=== PATIENT | male | born 1940 | race Caucasian/White ===

== ENCOUNTER 2017-01-21 20:36 | Inpatient (IN) | payer MEDICAID ==
[2017-01-21 20:36] VITALS: BMI 27.3
[2017-01-21 21:14] LABS: BASO # 0.1 K/uL (0.0-0.2); BASO % 0.9 % (0.0-2.0); EOS # 0.2 K/uL (0.0-0.7); EOS % 3.3 % (0.0-4.0); HEMATOCRIT 42.5 % (35.0-51.0); LYMPH % 15.4 % (20.0-40.0); MEAN CELL VOLUME 94.3 fL (80.0-94.0); MEAN CORPUSCULAR HEMOGLOBIN 31.2 pg (27.0-31.0); MEAN PLATELET VOLUME 8.3 fL (7.2-11.7); MONO # 0.5 K/uL (0.0-0.8); MONO % 8.1 % (0.0-10.0); WHITE BLOOD COUNT 6.3 K/uL (4.8-10.8)
[2017-01-21] MEDS ORDERED: Aspirin 325 mg EC Tablets PO STA (21:18)
--- NOTE | 2017-01-21 21:18 | C.PDOC ---
History Of Present Illness 76 y/o male pmhx COPD presents to the ED with complaints of chest pain intermittently for the past 2 days with associated SOB. Denies fever, chills, vomiting, dizziness or any other complaints. Time Seen by Provider: 01/21/17 21:18 Chief Complaint (Nursing): Chest Pain History Per: Patient History/Exam Limitations: no limitations Onset/Duration Of Symptoms: Days, Intermittent Episodes Current Symptoms Are (Timing): Still Present Severity: Moderate Quality: "Pain" Associated Symptoms: denies: Nausea Modifying Factors: None Alleviating Factors: None Recent travel outside of the [place]: No Past Medical History Reviewed: Historical Data, Nursing Documentation, Vital Signs Vital Signs: Last Vital Signs Temp 98 F 01/21/17 20:38 Pulse 60 01/21/17 20:38 Resp 15 01/21/17 20:38 BP 159/72 H 01/21/17 20:38 Pulse Ox 92 L 01/21/17 21:40 - Medical History PMH: Atrial Fibrillation, Benign Prostatic Hyperplasia, COPD, Depression (Major depressive), HTN, Hyperlipidemia, Sleep Apnea Family History: States: Unknown Family Hx - Social History Hx Alcohol Use: No Hx Substance Use: No - Immunization History Hx Tetanus Toxoid Vaccination: No Hx Influenza Vaccination: Yes (04/05/2016) Hx Pneumococcal Vaccination: Yes (04/05/2016) Review Of Systems Constitutional: Negative for: Fever, Chills Cardiovascular: Positive for: Chest Pain Respiratory: Positive for: Shortness of Breath Gastrointestinal: Negative for: Vomiting Genitourinary: Negative for: Dysuria Musculoskeletal: Negative for: Back Pain Skin: Positive for: Rash (legs) Neurological: Negative for: Dizziness Psych: Negative for: Anxiety Physical Exam - Physical Exam Appears: Non-toxic, No Acute Distress Skin: Warm, Dry, No Rash, Other (poor vascular skin changes) Head: Normacephalic Eye(s): bilateral: Normal Inspection Oral Mucosa: Moist Neck: Supple Chest: Symmetrical, Other (pacemaker to left chest wall) Cardiovascular: Rhythm Irregular, No Murmur Respiratory: No Accessory Muscle Use, Rales (at bases), No Rhonchi, No Wheezing Gastrointestinal/Abdominal: Soft, No Tenderness, Distention, No Guarding, No Rebound, Other (obese, tympanic to percussion) Back: No CVA Tenderness Extremity: Pedal Edema (trace pedal edema bilterally), No Calf Tenderness, Capillary Refill (<2 seconds) Extremity: Bilateral: Atraumatic Pulses: Left Dorsalis Pedis: Normal, Right Dorsalis Pedis: Normal Neurological/Psych: Oriented x3, Normal Speech, Normal Cognition Gait: Steady ED Course And Treatment - Laboratory Results Result Diagrams: 01/21/17 21:02 01/21/17 21:02 ECG: Interpreted By Me, Viewed By Me O2 Sat by Pulse Oximetry: 92 (room air) Pulse Ox Interpretation: Abnormal - Radiology CXR: Interpreted by Me, Viewed By Me CXR Interpretation: Yes: Other (unchnaged from 2013, pacer in left chest wall). No: Infiltrates, Fracture, Pnemothorax Disposition Discussed With DrAlia: Sarita Soriano Comment: acceptd the pt on his service and took over the care at 10:25 PM Doctor Will See Patient In The: Hospital Counseled Patient/Family Regarding: Studies Performed, Diagnosis - Disposition Disposition: HOSPITALIZED Disposition Time: 21:18 Condition: FAIR - POA Present On Arrival: Poor Glycemic Control - Clinical Impression Clinical Impression: Chest pain, COPD (chronic obstructive pulmonary disease), Dyspnea - Scribe Statement The provider has reviewed the documentation as recorded by the Hue Newton Provider Attestation: All medical record entries made by the Hue were at my direction and personally dictated by me. I have reviewed the chart and agree that the record accurately reflects my personal performance of the history, physical exam, medical decision making, and the department course for this patient. I have also personally directed, reviewed, and agree with the discharge instructions and disposition. Decision To Admit - Pt Status Changed To: Hospital Disposition Of: Inpatient - Admit Certification Admit to Inpatient:: After my assessment, the patient will require hospitalization for at least two midnights. This is because of the severity of symptoms shown, intensity of services needed, and/or the medical risk in this patient being treated as an outpatient. - InPatient: Physician Admission Certification: I certify that this patient requires 2 or more midnights of care for the following reason:: After my assessment, the patient will require hospitalization for at least two midnights. This is because of the severity of symptoms shown, intensity of services needed, and/or the medical risk in this patient being treated as an outpatient. - . Bed Request Type: Telemetry Admitting Physician: Sarita Soriano Patient Diagnosis: Chest pain, COPD (chronic obstructive pulmonary disease), Dyspnea
[2017-01-21 21:22] LABS: CHLORIDE 100 mmol/L (98-107); POTASSIUM 3.3 mmol/L (3.6-5.2); SODIUM 141 mmol/L (132-148)
[2017-01-21 21:24] LABS: ALB/GLOB RATIO 1.5 (1.0-2.1); AST/SGOT 20 U/L (17-59); BILIRUBIN,TOTAL 0.4 mg/dL (0.2-1.3); CARBON DIOXIDE 28 mmol/L (22-30); GFR AFRICAN-AMERICAN > 60
[2017-01-21 21:25] LABS: ALKALINE PHOSPHATASE 53 U/L (38-126); ALT/SGPT 29 U/L (21-72); BLOOD UREA NITROGEN 20 mg/dL (9-20); CALCIUM 8.3 mg/dl (8.6-10.4); GLUCOSE,RANDOM 137 mg/dL (75-110)
[2017-01-21] MEDS ORDERED: Aspirin 325 mg EC Tablets PO ONE (21:25)
[2017-01-21 21:37] LABS: INR 1.1
[2017-01-21] MEDS ORDERED: Albuterol-Ipratrop 3 mg / 0.5 (3 ml) UD INH PRN (22:28)
[2017-01-21] MEDS ORDERED: Albuterol-Ipratrop 3 mg / 0.5 (3 ml) UD IH PRN (22:43)
[2017-01-21] MEDS ORDERED: Potassium Chloride 20 mEq ER Tab PO STA (22:48)
--- NOTE | 2017-01-21 22:48 | CP.PCM.HP ---
History of Present Illness - History of Present Illness History of Present Illness: 76 years old male pt with pmh of htn, copd, CAD sp CABG, HLD, afib, ppm presented with c/o intermittent chest pain x 2 days. pain started in back and upper shoulder and moved to chest. no c/o palpitation, lightheadedness no limb swelling, dizziness no fever, nausea, vomiting Present on Admission - Present on Admission Any Indicators Present on Admission: No Past Patient History - Past Social History Smoking Status: Former Smoker - CARDIAC Hx Atrial Fibrillation: Yes Hx Hypertension: Yes - PULMONARY Hx Chronic Obstructive Pulmonary Disease (COPD): Yes Hx Sleep Apnea: Yes - HEENT Hx Glaucoma: Yes - RENAL Hx Renal Failure: Yes - ENDOCRINE/METABOLIC Hx Diabetes Mellitus Type 1: Yes - GASTROINTESTINAL Hx Gastroesophageal Reflux: Yes - GENITOURINARY/GYNECOLOGICAL Other/Comment: Obstructive and reflux uropathy - PSYCHIATRIC Hx Depression: Yes (Major depressive) Hx Substance Use: No - SURGICAL HISTORY Hx Surgeries: No - ANESTHESIA Hx Anesthesia: No Meds Allergies/Adverse Reactions: Allergies Allergy/AdvReac Type Severity Reaction Status Date / Time No Known Allergies Allergy Verified 01/21/17 20:47 Results - Vital Signs Recent Vital Signs: Last Vital Signs Temp 98 F 01/21/17 20:38 Pulse 60 01/21/17 20:38 Resp 15 01/21/17 20:38 BP 159/72 H 01/21/17 20:38 Pulse Ox 92 L 01/21/17 22:26 - Labs Result Diagrams: 01/21/17 21:02 01/21/17 21:02 Assessment & Plan (1) Aortic stenosis Status: Acute (2) CAD (coronary artery disease) Status: Acute (3) COPD (chronic obstructive pulmonary disease) Status: Acute (4) Chest pain Status: Acute (5) Dyspnea Status: Acute (6) HTN (hypertension) Status: Acute - Assessment and Plan (Free Text) Plan: meds and labs reviewed carmelita marte proscar cardio consult labs next am
[2017-01-21] MEDS: Albuterol-Ipratrop 3 mg / 0.5 (3 ml) UD IH SCH (23:32)
--- NOTE | 2017-01-22 09:12 | RAD ---
PROCEDURE: CHEST RADIOGRAPH, 1 VIEW HISTORY: Chest pain COMPARISON: None available. FINDINGS: LUNGS: The lungs are well inflated. There is mild pulmonary venous congestion. PLEURA: No pneumothorax or pleural fluid seen. CARDIOVASCULAR: There is moderate cardiomegaly. Status post CABG. Atherosclerotic aortic arch calcifications are present. . OSSEOUS STRUCTURES: No significant abnormalities. VISUALIZED UPPER ABDOMEN: Normal. OTHER FINDINGS: None. IMPRESSION: Moderate cardiomegaly and mild pulmonary venous congestion.
[2017-01-22] MEDS: (Novolin R) Insulin Human Regular 100 units/ml vial SC SCH ×2 (10:00→17:03)
[2017-01-22] MEDS: Fluticasone-Salmeterol 250-50mcg Diskus IH SCH ×2 (10:44→19:13)
--- NOTE | 2017-01-22 10:48 | CP.PCM.PN ---
Subjective - Date & Time of Evaluation Date of Evaluation: 01/22/17 Time of Evaluation: 12:20 - Subjective Subjective: clinically same Objective - Vital Signs/Intake and Output Vital Signs (last 24 hours): Temp Pulse Resp BP Pulse Ox 97.3 F L 60 18 156/73 H 99 01/22/17 07:20 01/22/17 07:20 01/22/17 07:20 01/22/17 07:20 01/22/17 07:20 - Medications Medications: Current Medications Acetaminophen (Tylenol 325mg Tab) 650 mg PO Q4 PRN PRN Reason: Fever >100.4 F Acetazolamide (Diamox 250 Mg Tab) 250 mg PO BID [facility] Albuterol/Ipratropium (Duoneb 3 Mg/0.5 Mg (3 Ml) Ud) 3 ml INH RQ2 PRN PRN Reason: Shortness of Breath Stop: 01/22/17 22:29 Albuterol/Ipratropium (Duoneb 3 Mg/0.5 Mg (3 Ml) Ud) 3 ml IH RQ6 PRN PRN Reason: Wheezing Aspirin (Aspirin Chewable) 81 mg PO DAILY [facility] Benzonatate (Tessalon Perles) 100 mg PO Q8 [facility] Bumetanide (Bumex) 0.5 mg PO DAILY [facility] Citalopram Hydrobromide (Celexa) 20 mg PO DAILY [facility] Finasteride (Proscar) 5 mg PO DAILY [facility] Glipizide (Glucotrol Xl) 2.5 mg PO DAILY [facility] Home Med (Brimonidine 0.15% [Alphagan P 0.15% Opht]) 1 drop OP BID [facility] Home Med (Dorzolamide Hcl/Timolol Maleat [Dorzolamide-Timolol Eye Drops]) 10 ml OP BID [facility] Insulin Human Regular (Novolin R) 0 unit SC BID [facility] PRN Reason: Protocol Lactulose (Enulose) 10 gm PO HS PRN PRN Reason: Constipation Latanoprost (Xalatan Opht) 0 ml OD HS [facility] Losartan Potassium (Cozaar) 100 mg PO DAILY [facility] Pilocarpine HCl (Isopto Carpine 1% Opht Soln) 1 drop OU TID [facility] Pneumococcal Polyvalent Vaccine (Pneumovax 23 Vaccine) 0.5 ml IM .ONCE ONE Stop: 01/24/17 14:01 Rosuvastatin Calcium (Crestor) 5 mg PO HS [facility] Fluticasone/Salmeterol (Advair Diskus 250/50) 1 puff IH RQ12 [facility] Last Admin: 01/22/17 10:44 Dose: Not Given Tamsulosin HCl (Flomax) 0.4 mg PO DAILY [facility] - Labs Labs: PT 12.4 SECONDS (9.7-12.2) H 01/21/17 21:24 INR 1.1 01/21/17 21:24 APTT 31 SECONDS (21-34) 01/21/17 21:24 - Constitutional Appears: Well - Head Exam Head Exam: ATRAUMATIC, NORMAL INSPECTION, NORMOCEPHALIC - Eye Exam Eye Exam: EOMI, Normal appearance, PERRL Pupil Exam: NORMAL ACCOMODATION, PERRL - ENT Exam ENT Exam: Mucous Membranes Moist, Normal Exam - Neck Exam Neck Exam: Full ROM, Normal Inspection. absent: Lymphadenopathy - Respiratory Exam Respiratory Exam: Decreased Breath Sounds - Cardiovascular Exam Cardiovascular Exam: REGULAR RHYTHM, +S1, +S2 - GI/Abdominal Exam GI & Abdominal Exam: Soft, Diminished Bowel Sounds - Rectal Exam Rectal Exam: Deferred Assessment and Plan (1) Aortic stenosis Status: Acute (2) CAD (coronary artery disease) Status: Acute (3) COPD (chronic obstructive pulmonary disease) Status: Acute (4) Chest pain Status: Acute (5) Dyspnea Status: Acute (6) HTN (hypertension) Status: Acute - Assessment and Plan (Free Text) Plan: carmelita as ordered pain improved pt comfortable oob carmelita aspirin bp meds dvt px cardio on board fup with labs pt/ot
[2017-01-22] MEDS: PILOCARPINE 1% OU SCH ×3 (11:00→17:43)
[2017-01-22] MEDS: GlipiZIDE 2.5 mg SR Tab PO SCH (11:15)
[2017-01-22] MEDS: Dorzolamide 2% Opht Sol 10ml OU SCH ×2 (13:37→17:45)
[2017-01-22] MEDS: Brimonidine 0.2% Opth Sol (5ml) OU SCH ×2 (14:00→17:40)
[2017-01-22] MEDS: Enoxaparin 40 mg Syringe SC SCH (15:10)
[2017-01-22] MEDS ORDERED: Latanoprost 2.5 ml Opht Soln OD SCH (22:00)
[2017-01-23 08:42] VITALS: PULSE 60; RESP 20
[2017-01-23] MEDS: Enoxaparin 40 mg Syringe SC SCH (09:35)
[2017-01-23] MEDS: Brimonidine 0.2% Opth Sol (5ml) OU SCH (09:35)
[2017-01-23] MEDS: GlipiZIDE 2.5 mg SR Tab PO SCH (09:35)
[2017-01-23] MEDS: PILOCARPINE 1% OU SCH ×2 (09:36→13:32)
[2017-01-23] MEDS: Dorzolamide 2% Opht Sol 10ml OU SCH (09:36)
[2017-01-23] MEDS: Fluticasone-Salmeterol 250-50mcg Diskus IH SCH (09:52)
--- NOTE | 2017-01-23 13:16 | CP.PCM.PN ---
Subjective - Date & Time of Evaluation Date of Evaluation: 01/23/17 Time of Evaluation: 10:40 - Subjective Subjective: clinically same Objective - Vital Signs/Intake and Output Vital Signs (last 24 hours): Temp Pulse Resp BP Pulse Ox 97.6 F 60 20 154/79 H 98 01/23/17 08:42 01/23/17 12:00 01/23/17 08:42 01/23/17 08:42 01/23/17 08:42 Intake and Output: 01/23/17 01/23/17 06:59 18:59 Intake Total 120 Balance 120 - Medications Medications: Current Medications Acetaminophen (Tylenol 325mg Tab) 650 mg PO Q4 PRN PRN Reason: Fever >100.4 F Acetazolamide (Diamox 250 Mg Tab) 250 mg PO BID [facility] Last Admin: 01/23/17 09:35 Dose: 250 mg Albuterol/Ipratropium (Duoneb 3 Mg/0.5 Mg (3 Ml) Ud) 3 ml IH RQ6 PRN PRN Reason: Wheezing Aspirin (Aspirin Chewable) 81 mg PO DAILY [facility] Last Admin: 01/23/17 09:35 Dose: 81 mg Benzonatate (Tessalon Perles) 100 mg PO Q8 [facility] Last Admin: 01/23/17 06:42 Dose: 100 mg Brimonidine Tartrate (Alphagan 0.2% Opht) 0 ml OU BID [facility] Last Admin: 01/23/17 09:35 Dose: 1 drop Bumetanide (Bumex) 0.5 mg PO DAILY [facility] Last Admin: 01/23/17 09:34 Dose: 0.5 mg Citalopram Hydrobromide (Celexa) 20 mg PO DAILY [facility] Last Admin: 01/23/17 09:35 Dose: 20 mg Dorzolamide HCl (Trusopt) 0 ml OU BID [facility] Last Admin: 01/23/17 09:36 Dose: 1 drop Enoxaparin Sodium (Lovenox) 40 mg SC DAILY [facility] Last Admin: 01/23/17 09:35 Dose: 40 mg Finasteride (Proscar) 5 mg PO DAILY [facility] Last Admin: 01/23/17 09:35 Dose: 5 mg Glipizide (Glucotrol Xl) 2.5 mg PO DAILY [facility] Last Admin: 01/23/17 09:35 Dose: 2.5 mg Insulin Human Regular (Novolin R) 0 unit SC BID [facility] PRN Reason: Protocol Last Admin: 01/22/17 17:03 Dose: Not Given Lactulose (Enulose) 10 gm PO HS PRN PRN Reason: Constipation Latanoprost (Xalatan Opht) 0 ml OD HS [facility] Last Admin: 01/22/17 21:56 Dose: 2.5 ml Losartan Potassium (Cozaar) 100 mg PO DAILY [facility] Last Admin: 01/23/17 09:35 Dose: 100 mg Pilocarpine HCl (Isopto Carpine 1% Opht Soln) 1 drop OU TID [facility] Last Admin: 01/23/17 09:36 Dose: 1 drop Pneumococcal Polyvalent Vaccine (Pneumovax 23 Vaccine) 0.5 ml IM .ONCE ONE Stop: 01/24/17 14:01 Rosuvastatin Calcium (Crestor) 5 mg PO HS [facility] Last Admin: 01/22/17 21:55 Dose: 5 mg Fluticasone/Salmeterol (Advair Diskus 250/50) 1 puff IH RQ12 [facility] Last Admin: 01/23/17 09:52 Dose: 1 puff Tamsulosin HCl (Flomax) 0.4 mg PO DAILY [facility] Last Admin: 01/23/17 09:35 Dose: 0.4 mg Timolol Maleate (Timoptic 0.5% Ophth Soln) 1 drop OU BID [facility] Last Admin: 01/23/17 09:36 Dose: 1 drop - Labs Labs: PT 12.4 SECONDS (9.7-12.2) H 01/21/17 21:24 INR 1.1 01/21/17 21:24 APTT 31 SECONDS (21-34) 01/21/17 21:24 - Constitutional Appears: Well - Head Exam Head Exam: ATRAUMATIC, NORMAL INSPECTION, NORMOCEPHALIC - Eye Exam Eye Exam: EOMI, Normal appearance, PERRL Pupil Exam: NORMAL ACCOMODATION, PERRL - ENT Exam ENT Exam: Mucous Membranes Moist, Normal Exam - Neck Exam Neck Exam: Full ROM, Normal Inspection. absent: Lymphadenopathy - Respiratory Exam Respiratory Exam: Decreased Breath Sounds - Cardiovascular Exam Cardiovascular Exam: REGULAR RHYTHM, +S1, +S2 - GI/Abdominal Exam GI & Abdominal Exam: Soft, Diminished Bowel Sounds - Rectal Exam Rectal Exam: Deferred Assessment and Plan (1) Aortic stenosis Status: Acute (2) CAD (coronary artery disease) Status: Acute (3) COPD (chronic obstructive pulmonary disease) Status: Acute (4) Chest pain Status: Acute (5) Dyspnea Status: Acute (6) HTN (hypertension) Status: Acute - Assessment and Plan (Free Text) Plan: pt feeling better pain relieved no acute events overnight dc back to [facility] carmelita meds as advised heart helathy diet discussed with family
[2017-01-23 16:08] VITALS: O2SAT 97
--- NOTE | 2017-01-23 17:38 | CP.PCM.PN ---
Subjective - Date & Time of Evaluation Date of Evaluation: 01/23/17 Time of Evaluation: 11:00 - Subjective Subjective: Awake, alert, responsive, NAD. Objective - Vital Signs/Intake and Output Vital Signs (last 24 hours): Temp Pulse Resp BP Pulse Ox 97.6 F 60 20 154/79 H 97 01/23/17 08:42 01/23/17 16:01 01/23/17 08:42 01/23/17 08:42 01/23/17 16:01 Intake and Output: 01/23/17 01/23/17 06:59 18:59 Intake Total 120 400 Balance 120 400 - Medications Medications: Current Medications Acetaminophen (Tylenol 325mg Tab) 650 mg PO Q4 PRN PRN Reason: Fever >100.4 F Acetazolamide (Diamox 250 Mg Tab) 250 mg PO BID [facility] Last Admin: 01/23/17 09:35 Dose: 250 mg Albuterol/Ipratropium (Duoneb 3 Mg/0.5 Mg (3 Ml) Ud) 3 ml IH RQ6 PRN PRN Reason: Wheezing Aspirin (Aspirin Chewable) 81 mg PO DAILY [facility] Last Admin: 01/23/17 09:35 Dose: 81 mg Benzonatate (Tessalon Perles) 100 mg PO Q8 [facility] Last Admin: 01/23/17 13:32 Dose: 100 mg Brimonidine Tartrate (Alphagan 0.2% Opht) 0 ml OU BID [facility] Last Admin: 01/23/17 09:35 Dose: 1 drop Bumetanide (Bumex) 0.5 mg PO DAILY [facility] Last Admin: 01/23/17 09:34 Dose: 0.5 mg Citalopram Hydrobromide (Celexa) 20 mg PO DAILY [facility] Last Admin: 01/23/17 09:35 Dose: 20 mg Dorzolamide HCl (Trusopt) 0 ml OU BID [facility] Last Admin: 01/23/17 09:36 Dose: 1 drop Enoxaparin Sodium (Lovenox) 40 mg SC DAILY [facility] Last Admin: 01/23/17 09:35 Dose: 40 mg Finasteride (Proscar) 5 mg PO DAILY [facility] Last Admin: 01/23/17 09:35 Dose: 5 mg Glipizide (Glucotrol Xl) 2.5 mg PO DAILY [facility] Last Admin: 01/23/17 09:35 Dose: 2.5 mg Insulin Human Regular (Novolin R) 0 unit SC BID [facility] PRN Reason: Protocol Last Admin: 01/22/17 17:03 Dose: Not Given Lactulose (Enulose) 10 gm PO HS PRN PRN Reason: Constipation Latanoprost (Xalatan Opht) 0 ml OD HS [facility] Last Admin: 01/22/17 21:56 Dose: 2.5 ml Losartan Potassium (Cozaar) 100 mg PO DAILY [facility] Last Admin: 01/23/17 09:35 Dose: 100 mg Pilocarpine HCl (Isopto Carpine 1% Opht Soln) 1 drop OU TID [facility] Last Admin: 01/23/17 13:32 Dose: 1 drop Pneumococcal Polyvalent Vaccine (Pneumovax 23 Vaccine) 0.5 ml IM .ONCE ONE Stop: 01/24/17 14:01 Rosuvastatin Calcium (Crestor) 5 mg PO HS [facility] Last Admin: 01/22/17 21:55 Dose: 5 mg Fluticasone/Salmeterol (Advair Diskus 250/50) 1 puff IH RQ12 [facility] Last Admin: 01/23/17 09:52 Dose: 1 puff Tamsulosin HCl (Flomax) 0.4 mg PO DAILY [facility] Last Admin: 01/23/17 09:35 Dose: 0.4 mg Timolol Maleate (Timoptic 0.5% Ophth Soln) 1 drop OU BID [facility] Last Admin: 01/23/17 09:36 Dose: 1 drop - Labs Labs: PT 12.4 SECONDS (9.7-12.2) H 01/21/17 21:24 INR 1.1 01/21/17 21:24 APTT 31 SECONDS (21-34) 01/21/17 21:24 Assessment and Plan - Assessment and Plan (Free Text) Assessment: Patient admitted from the [facility] with chest pain, seen and examined. Out of bed, no complaints of pain, alert, awake. D/W DR Richie Soriano, plan to discharge back to [facility] after seen by DR Javier.
[2017-01-23 18:09] VITALS: BP 121/74; TEMP 98.1
--- NOTE | 2017-01-23 18:11 | CP.PCM.CON ---
History of Present Illness - History of Present Illness History of Present Illness: I was asked to see patient by Dr. Richie Soriano. Patient is a 76 year old male with PMH HTN, CAD s/p CABG, hypercholesterolemia, PPM who presents with chest pain. Patient describes pain which began in his back and upper shoulder blade and radiated to his chest. The patient denies dyspnea. He denies syncope. Review of Systems - Constitutional Constitutional: absent: As Per HPI, Anorexia, Chills, Daytime Sleepiness, Excessive Sweating, Fatigue, Fever, Frequent Falls, Headache, Increased Appetite , Lethargy, Malaise, Night Sweats, Snoring, Sleep Apnea, Weight Gain, Weight Loss, Weakness, Other - EENT Eyes: absent: As Per HPI, Blind Spots, Blurred Vision, Change in Vision, Decreased Night Vision, Diplopia, Discharge, Dry Eye, Exophthalmos, Floaters, Irritation, Itchy Eyes, Loss of Peripheral Vision, Pain, Photophobia, Requires Corrective Lenses, Sees Flashes, Spots in Vision, Tunnel Vision, Other Visual Disturbances, Loss of Vision, Other Ears: absent: As Per HPI, Decreased Hearing, Ear Discharge, Ear Pain, Tinnitus, Abnormal Hearing, Disequilibrium, Dizziness, Other Nose/Mouth/Throat: absent: As Per HPI, Epistaxis, Nasal Congestion, Nasal Discharge, Nasal Obstruction, Nasal Trauma, Nose Pain, Post Nasal Drip, Sinus Pain, Sinus Pressure, Bleeding Gums, Change in Voice, Dental Pain, Dry Mouth, Dysphagia, Halitosis, Hoarsness, Lip Swelling, Mouth Lesions, Mouth Pain, Odynophagia, Sore Throat, Throat Swelling, Tongue Swelling, Facial Pain, Neck Pain, Neck Mass, Other - Cardiovascular Cardiovascular: Chest Pain at Rest - Respiratory Respiratory: absent: As Per HPI, Cough, Dyspnea, Hemoptysis, Dyspnea on Exertion , Wheezing, Snoring, Stridor, Pain on Inspiration, Chest Congestion, Excessive Mucous Production, Change in Mucous Color, Pain with Coughing, Other - Gastrointestinal Gastrointestinal: absent: As Per HPI, Abdominal Pain, Belching, Bloating, Change in Bowel Habits, Change in Stool Character, Coffee Ground Emesis, Constipation, Cramping, Diarrhea, Dyspepsia, Dysphagia, Early Satiety, Excessive Flatus, Fecal Incontinence, Heartburn, Hematemesis, Hematochezia, Loose Stools, Melena, Nausea, Odynophagia, Temesmus, Vomiting, Other - Genitourinary Genitourinary: absent: As Per HPI, Change in Urinary Stream, Difficulty Urinating, Dysuria, Flank Pain, Hematuria, Pyuria, Nocturia, Urinary Incontinence, Urinary Frequency, Urinary Hesitance, Urinary Urgency, Voiding Freq/Small Amts, Freq UTI, Hx Renal/Bladder Calculi, Hx /Renal Surgery, Bladder Distension, Other - Musculoskeletal Musculoskeletal: absent: As Per HPI, Abnormal Gait, Arthralgias, Atrophy, Back Pain, Deformity, Joint Swelling, Limited Range of Motion, Loss of Height, Muscle Cramps, Muscle Weakness, Myalgias, Neck Pain, Numbness, Radiating Pain into Limb, Stiffness, Tingling, Other - Integumentary Integumentary: absent: As Per HPI, Acne, Alopecia, Bleeding Lesions, Change in Hair, Change in Nails, Change in Pigmentation, Changing Lesions, Dry Skin, Erythema, Furuncle, Hirsutism, Lesions, New Lesions, Non-Healing Lesions, Photosensitivity, Pruritus, Rash, Skin Pain, Skin Ulcer, Sores, Striae, Swelling , Unusual Bruising, Wounds, Jaundice, Other - Neurological Neurological: absent: As Per HPI, Abnormal Gait, Abnormal Hearing, Abnormal Movements, Abnormal Speech, Behavioral Changes, Burning Sensations, Confusion, Convulsions, Disequilibrium, Dizziness, Numbness, Focal Weakness, Frequent Falls , Headaches, Lack of Coordination, Loss of Vision, Memory Loss, Paresthesias, Radicular Pain, Restless Legs, Sensory Deficit, Syncope, Tingling, Tremor, Vertigo, Weakness, Other Visual Disturbances, Other - Psychiatric Psychiatric: absent: As Per HPI, Abnormal Sleep Pattern, Anhedonia, Anxiety, Auditory Hallucinations, Behavioral Changes, Change in Appetite, Change in Libido, Confusion, Depression, Difficulty Concentrating, Hallucinations, Homicidal Ideation, Hopelessness, Irritability, Memory Loss, Mood Swings, Panic Attacks, Paranoia, Suicidal Ideation, Visual Hallucinations, Tactile Hallucinations, Other - Endocrine Endocrine: absent: As Per HPI, Change in Body Appearance, Change in Libido, Cold Intolorance, Deepening of Voice, Excessive Sweating, Fatigue, Flushing, Heat Intolorance, Increase in Ring/Shoe/Hat Size, Palpitations, Polydipsia, Polyphagia, Polyuria, Other - Hematologic/Lymphatic Hematologic: absent: As Per HPI, Easy Bleeding, Easy Bruising, Lymphadenopathy, Other Past Patient History - Past Medical History & Family History Past Medical History?: Yes - Past Social History Smoking Status: Former Smoker - CARDIAC Hx Hypertension: Yes - PULMONARY Hx Chronic Obstructive Pulmonary Disease (COPD): Yes - HEENT Hx Glaucoma: Yes - RENAL Hx Renal Failure: Yes - ENDOCRINE/METABOLIC Hx Diabetes Mellitus Type 1: Yes - MUSCULOSKELETAL/RHEUMATOLOGICAL Hx Falls: No - GASTROINTESTINAL Hx Gastroesophageal Reflux: Yes - GENITOURINARY/GYNECOLOGICAL Other/Comment: Obstructive and reflux uropathy - PSYCHIATRIC Hx Depression: Yes (Major depressive) Hx Substance Use: No - SURGICAL HISTORY Hx Surgeries: No - ANESTHESIA Hx Anesthesia: No Meds Allergies/Adverse Reactions: Allergies Allergy/AdvReac Type Severity Reaction Status Date / Time No Known Allergies Allergy Verified 01/21/17 20:47 - Medications Medications: Current Medications Acetaminophen (Tylenol 325mg Tab) 650 mg PO Q4 PRN PRN Reason: Fever >100.4 F Acetazolamide (Diamox 250 Mg Tab) 250 mg PO BID [facility] Last Admin: 01/23/17 09:35 Dose: 250 mg Albuterol/Ipratropium (Duoneb 3 Mg/0.5 Mg (3 Ml) Ud) 3 ml IH RQ6 PRN PRN Reason: Wheezing Aspirin (Aspirin Chewable) 81 mg PO DAILY [facility] Last Admin: 01/23/17 09:35 Dose: 81 mg Benzonatate (Tessalon Perles) 100 mg PO Q8 [facility] Last Admin: 01/23/17 13:32 Dose: 100 mg Brimonidine Tartrate (Alphagan 0.2% Opht) 0 ml OU BID [facility] Last Admin: 01/23/17 09:35 Dose: 1 drop Bumetanide (Bumex) 0.5 mg PO DAILY [facility] Last Admin: 01/23/17 09:34 Dose: 0.5 mg Citalopram Hydrobromide (Celexa) 20 mg PO DAILY [facility] Last Admin: 01/23/17 09:35 Dose: 20 mg Dorzolamide HCl (Trusopt) 0 ml OU BID [facility] Last Admin: 01/23/17 09:36 Dose: 1 drop Enoxaparin Sodium (Lovenox) 40 mg SC DAILY [facility] Last Admin: 01/23/17 09:35 Dose: 40 mg Finasteride (Proscar) 5 mg PO DAILY [facility] Last Admin: 01/23/17 09:35 Dose: 5 mg Glipizide (Glucotrol Xl) 2.5 mg PO DAILY [facility] Last Admin: 01/23/17 09:35 Dose: 2.5 mg Insulin Human Regular (Novolin R) 0 unit SC BID [facility] PRN Reason: Protocol Last Admin: 01/22/17 17:03 Dose: Not Given Lactulose (Enulose) 10 gm PO HS PRN PRN Reason: Constipation Latanoprost (Xalatan Opht) 0 ml OD HS [facility] Last Admin: 01/22/17 21:56 Dose: 2.5 ml Losartan Potassium (Cozaar) 100 mg PO DAILY [facility] Last Admin: 01/23/17 09:35 Dose: 100 mg Pilocarpine HCl (Isopto Carpine 1% Opht Soln) 1 drop OU TID [facility] Last Admin: 01/23/17 13:32 Dose: 1 drop Pneumococcal Polyvalent Vaccine (Pneumovax 23 Vaccine) 0.5 ml IM .ONCE ONE Stop: 01/24/17 14:01 Rosuvastatin Calcium (Crestor) 5 mg PO [facility] Last Admin: 01/22/17 21:55 Dose: 5 mg Fluticasone/Salmeterol (Advair Diskus 250/50) 1 puff IH RQ12 [facility] Last Admin: 01/23/17 09:52 Dose: 1 puff Tamsulosin HCl (Flomax) 0.4 mg PO DAILY [facility] Last Admin: 01/23/17 09:35 Dose: 0.4 mg Timolol Maleate (Timoptic 0.5% Ophth Soln) 1 drop OU BID [facility] Last Admin: 01/23/17 09:36 Dose: 1 drop Physical Exam - Constitutional Appears: Non-toxic - Head Exam Head Exam: NORMAL INSPECTION - Eye Exam Eye Exam: Normal appearance - ENT Exam ENT Exam: Mucous Membranes Moist - Neck Exam Neck exam: Positive for: Full Rom - Respiratory Exam Respiratory Exam: Decreased Breath Sounds - Cardiovascular Exam Cardiovascular Exam: REGULAR RHYTHM, Systolic Murmur - GI/Abdominal Exam GI & Abdominal Exam: Normal Bowel Sounds - Rectal Exam Rectal Exam: Deferred - Back Exam Back exam: NORMAL INSPECTION - Neurological Exam Neurological exam: Alert, Oriented x3 - Psychiatric Exam Psychiatric exam: Normal Affect - Skin Skin Exam: Normal Color Results - Vital Signs Recent Vital Signs: Last Vital Signs Temp 98.1 F 01/23/17 16:00 Pulse 60 01/23/17 16:01 Resp 20 01/23/17 16:00 BP 121/74 01/23/17 16:00 Pulse Ox 97 01/23/17 16:01 - Labs Result Diagrams: 01/21/17 21:02 01/21/17 21:02 Labs: Laboratory Results - last 24 hr 01/22/17 01/23/17 01/23/17 21:18 06:30 11:24 POC Glucose (mg/dL) 110 108 133 H - EKG Data EKG Interpreted by: Myself Assessment & Plan (1) CAD (coronary artery disease) Assessment and Plan: patient has stable CAD. recommend medical therapy Status: Acute (2) HTN (hypertension) Assessment and Plan: blood pressure control Status: Acute (3) Aortic stenosis Assessment and Plan: no valvular stenosis Status: Acute
--- NOTE | 2017-01-24 12:45 | CARD ---
APPROVED REPORT EKG Measurement Heart [id number] <Conclusion> AV dual-paced rhythm Abnormal ECG
[2017-01-24] MEDS ORDERED: Pneumococcal 23-Valent Vaccine IM ONE (14:00)
[2017-01-24] MEDS ORDERED: Influenza Virus Vaccine (Afluria Inactive dont use ) IM ONE (14:00)
== END 2017-01-23 18:37 | DRG 132 ==
LOC: C.ER 20:36 → C.9E 22:26 → C.5T 23:16
PROVIDERS: ADMIT Internal Medicine Nephrology; ATTEND Internal Medicine Nephrology
DX: I25.10 Atherosclerotic heart disease of native coronary artery without angina pectoris (principal); I35.0 Nonrheumatic aortic (valve) stenosis; J44.9 Chronic obstructive pulmonary disease, unspecified; I48.91 Unspecified atrial fibrillation; I10 Essential (primary) hypertension; E10.9 Type 1 diabetes mellitus without complications; G47.30 Sleep apnea, unspecified; H40.9 Unspecified glaucoma; K21.9 Gastro-esophageal reflux disease without esophagitis; N40.0 Benign prostatic hyperplasia without lower urinary tract symptoms; E78.5 Hyperlipidemia, unspecified; Z95.1 Presence of aortocoronary bypass graft; Z79.4 Long term (current) use of insulin; Z87.891 Personal history of nicotine dependence

== ENCOUNTER 2017-09-23 03:47 | Inpatient (IN) | payer MEDICAID ==
[2017-09-23 03:55] VITALS: BMI 34.3
[2017-09-23] MEDS ORDERED: Nitroglycerin 2% Ointment Foilpak UD TOP STA (03:57)
--- NOTE | 2017-09-23 03:58 | C.PDOC ---
History Of Present Illness 77 year old male [facility] patient of Dr. Andrea Soriano presents to the ER with a complaint of chest pain, abdominal pain, and back pain for the past 2 days. Patient states he told the nurses at the home and they only gave him tylenol for the past 2 days. Patient states the pain is not pleuritic or positional. EMS was called this evening and patient received nitro and aspirin enroute, since then pain in chest is resolved, but continues with residual upper back pain. Patient's PMHx is significant for NIDDM and atrial fibrillation. Denies SOB, nausea, or vomiting. Time Seen by Provider: 09/23/17 03:52 Chief Complaint (Nursing): Chest Pain History Per: Patient History/Exam Limitations: no limitations Onset/Duration Of Symptoms: Days Current Symptoms Are (Timing): Still Present Associated Symptoms: denies: Nausea, Dyspnea, Diaphoresis, Syncope Modifying Factors: None Exacerbating Factors: None Alleviating Factors: None Recent travel outside of the [place]: No Past Medical History Reviewed: Historical Data, Nursing Documentation, Vital Signs Vital Signs: Last Vital Signs Temp 98.5 F 09/23/17 23:05 Pulse 62 09/23/17 23:05 Resp 20 09/23/17 23:05 BP 148/70 09/23/17 23:05 Pulse Ox 100 09/24/17 00:00 - Medical History PMH: Atrial Fibrillation, Benign Prostatic Hyperplasia, COPD, Depression (Major depressive), HTN, Hyperlipidemia, Sleep Apnea Family History: States: Unknown Family Hx - Social History Hx Alcohol Use: No Hx Substance Use: No - Immunization History Hx Tetanus Toxoid Vaccination: No Hx Influenza Vaccination: Yes (04/05/2016) Hx Pneumococcal Vaccination: Yes (04/05/2016) Review Of Systems Constitutional: Negative for: Fever, Chills Cardiovascular: Positive for: Chest Pain. Negative for: Palpitations Respiratory: Negative for: Cough, Shortness of Breath Gastrointestinal: Positive for: Abdominal Pain. Negative for: Nausea, Vomiting Genitourinary: Negative for: Dysuria, Hematuria Musculoskeletal: Positive for: Back Pain Neurological: Negative for: Weakness, Numbness Physical Exam - Physical Exam Appears: Non-toxic, No Acute Distress, Other (Morbidly obese) Skin: Normal Color, Warm, Dry Head: Atraumatic, Normacephalic Eye(s): bilateral: Normal Inspection Ear(s): Bilateral: Normal Nose: Normal Oral Mucosa: Moist Throat: Normal, No Erythema, No Exudate Neck: Normal, Supple Chest: Other (Midline lower sternum sternotomy scar) Cardiovascular: Murmur (Systolic 2/6 loudest at aortic area) Respiratory: Normal Breath Sounds, No Rales, No Rhonchi, No Wheezing Gastrointestinal/Abdominal: Soft, No Tenderness Extremity: Normal ROM (x4) Neurological/Psych: Oriented x3, Normal Speech ED Course And Treatment - Laboratory Results Result Diagrams: 09/23/17 04:02 09/23/17 04:02 ECG: Interpreted By Me, Viewed By Me Interpretation Of ECG: AV sequential dual chamber pacemaker with atrial capture. No old for comparison Rate From EC Medical Decision Making Medical Decision Making: Impression is chest pain, will rule out ACS, order routine labs, and admit for observation. Disposition - Disposition Disposition: HOSPITALIZED Disposition Time: 06:45 Condition: FAIR - Clinical Impression Clinical Impression: Pneumonia - Scribe Statement The provider has reviewed the documentation as recorded by the Scribsara Light All medical record entries made by the Harrisibsara were at my direction and personally dictated by me. I have reviewed the chart and agree that the record accurately reflects my personal performance of the history, physical exam, medical decision making, and the department course for this patient. I have also personally directed, reviewed, and agree with the discharge instructions and disposition.
[2017-09-23 04:09] LABS: BASO # 0.1 K/uL (0.0-0.2); BASO % 0.9 % (0.0-2.0); EOS # 0.2 K/uL (0.0-0.7); EOS % 2.1 % (0.0-4.0); HEMOGLOBIN 14.3 g/dL (12.0-18.0); LYMPH % 11.8 % (20.0-40.0); MEAN CORPUSCULAR HEMOGLOBIN 31.7 pg (27.0-31.0); MEAN CORPUSCULAR HGB CONC 33.7 g/dL (33.0-37.0); MEAN PLATELET VOLUME 8.3 fL (7.2-11.7); MONO # 0.7 K/uL (0.0-0.8); MONO % 8.3 % (0.0-10.0); NEUT # 6.7 K/uL (1.8-7.0); NEUT % 76.9 % (50.0-75.0); RBC 4.52 Mil/uL (4.40-5.90); RED CELL DISTRIBUTION WIDTH 14.2 % (11.5-14.5); WHITE BLOOD COUNT 8.8 K/uL (4.8-10.8)
[2017-09-23] MEDS ORDERED: Nitroglycerin 2% Ointment Foilpak UD TOP ONE (04:10)
[2017-09-23 04:18] LABS: CALCIUM 8.6 mg/dl (8.6-10.4); GFR AFRICAN-AMERICAN > 60; GFR NON-AFRICAN AMERICAN > 60
[2017-09-23 04:27] LABS: B-TYPE NATRIURETIC PEPTIDE 350 pg/mL (0-900)
[2017-09-23 04:58] LABS: ALB/GLOB RATIO 1.3 (1.0-2.1); ALT/SGPT 14 U/L (21-72); AST/SGOT 29 U/L (17-59); BLOOD UREA NITROGEN 18 mg/dL (9-20)
--- NOTE | 2017-09-23 08:44 | RAD ---
PROCEDURE: CHEST RADIOGRAPH, 1 VIEW HISTORY: Chest pain COMPARISON: 01/21/2017. FINDINGS: LUNGS: The lungs are well inflated. There is moderate pulmonary venous congestion. PLEURA: No pneumothorax or pleural fluid seen. CARDIOVASCULAR: There is persistent cardiomegaly. Status post CABG. There is stable position of left-sided permanent pacing device. OSSEOUS STRUCTURES: No significant abnormalities. VISUALIZED UPPER ABDOMEN: Normal. OTHER FINDINGS: None. IMPRESSION: No active pulmonary disease. Persistent cardiomegaly and pulmonary venous congestion.
--- NOTE | 2017-09-23 08:45 | RAD ---
HISTORY: COMPARISON: 09/23/2017 TECHNIQUE: Chest PA and lateral FINDINGS: LINES AND TUBES: None. LUNG AND PLEURA: The lungs are well inflated. There is moderate pulmonary venous congestion. There are small pleural effusions. HEART AND MEDIASTINUM: The heart remains enlarged. Status post CABG. There is stable position of left-sided pacemaker. The hilar and mediastinal contours are within normal limits. SKELETAL STRUCTURES: The bony structures are within normal limits for the patient's age. VISUALIZED UPPER ABDOMEN: Normal. OTHER FINDINGS: None. IMPRESSION: Suspect mild congestive heart failure
[2017-09-23] MEDS ORDERED: (Novolog) Insulin Aspart, Recombinant 100 u/ml 10 ml vial SC SCH (11:00)
[2017-09-23] MEDS ORDERED: Fluticasone-Salmeterol 250-50mcg Diskus INH SCH (11:00)
[2017-09-23 11:31] LABS: CK-MB 1.49 ng/mL (0.0-3.38); TROPONIN I 0.032 ng/mL (0.00-0.120)
--- NOTE | 2017-09-23 12:28 | CP.PCM.CON ---
History of Present Illness - History of Present Illness History of Present Illness: Patient seen/examined. full consutl to follow. recommend echocardiogram to evaluate LV function and valvular function. Past Patient History - Past Medical History & Family History Past Medical History?: Yes - Past Social History Smoking Status: Former Smoker - CARDIAC Hx Atrial Fibrillation: Yes Hx Hypertension: Yes - PULMONARY Hx Chronic Obstructive Pulmonary Disease (COPD): Yes Hx Sleep Apnea: Yes - HEENT Hx Glaucoma: Yes - RENAL Hx Renal Failure: Yes - ENDOCRINE/METABOLIC Hx Diabetes Mellitus Type 1: Yes - MUSCULOSKELETAL/RHEUMATOLOGICAL Hx Falls: No - GASTROINTESTINAL Hx Gastroesophageal Reflux: Yes - GENITOURINARY/GYNECOLOGICAL Other/Comment: Obstructive and reflux uropathy - PSYCHIATRIC Hx Depression: Yes (Major depressive) Hx Substance Use: No - SURGICAL HISTORY Hx Surgeries: No - ANESTHESIA Hx Anesthesia: No Meds Allergies/Adverse Reactions: Allergies Allergy/AdvReac Type Severity Reaction Status Date / Time No Known Allergies Allergy Verified 09/23/17 03:57 - Medications Medications: Current Medications Albuterol/Ipratropium (Duoneb 3 Mg/0.5 Mg (3 Ml) Ud) 3 ml INH RQ6 [facility] Aspirin (Aspirin) 325 mg PO DAILY [facility] Enoxaparin Sodium (Lovenox) 40 mg SC DAILY [facility] Insulin Aspart (Novolog) 0 unit SC QID [facility] PRN Reason: Protocol Methylprednisolone (Solu-Medrol) 40 mg IVP Q8 [facility] Pantoprazole Sodium (Protonix Ec Tab) 40 mg PO DAILY [facility] Fluticasone/Salmeterol (Advair Diskus 250/50) 1 puff INH RQ12 [facility] Results - Vital Signs Recent Vital Signs: Last Vital Signs Temp 98.6 F 09/23/17 06:19 Pulse 60 09/23/17 11:47 Resp 18 09/23/17 11:47 BP 111/64 09/23/17 11:47 Pulse Ox 97 09/23/17 11:47 - Labs Result Diagrams: 09/23/17 04:02 09/23/17 04:02 Labs: Laboratory Results - last 24 hr 09/23/17 09/23/17 09/23/17 04:02 04:02 11:02 WBC 8.8 RBC 4.52 Hgb 14.3 Hct 42.5 MCV 94.0 MCH 31.7 H MCHC 33.7 RDW 14.2 Plt Count 127 L MPV 8.3 Neut % (Auto) 76.9 H Lymph % (Auto) 11.8 L [place] % (Auto) 8.3 Eos % (Auto) 2.1 Baso % (Auto) 0.9 Neut # (Auto) 6.7 Lymph # (Auto) 1.0 [place] # (Auto) 0.7 Eos # (Auto) 0.2 Baso # (Auto) 0.1 Sodium 142 Potassium 4.5 Chloride 106 Carbon Dioxide 25 Anion Gap 15 BUN 18 Creatinine 1.0 Est GFR ( Amer) > 60 Est GFR (Non-Af Amer) > 60 POC Glucose (mg/dL) Random Glucose 99 Calcium 8.6 Total Bilirubin 0.8 AST 29 ALT 14 L D Alkaline Phosphatase 55 Total Creatine Kinase 47 L CK-MB (Mass) 1.49 Troponin I 0.0410 0.0320 NT-Pro-B Natriuret Pep 350 Total Protein 7.2 Albumin 4.0 Globulin 3.2 Albumin/Globulin Ratio 1.3 09/23/17 12:16 WBC RBC Hgb Hct MCV MCH MCHC RDW Plt Count MPV Neut % (Auto) Lymph % (Auto) [place] % (Auto) Eos % (Auto) Baso % (Auto) Neut # (Auto) Lymph # (Auto) [place] # (Auto) Eos # (Auto) Baso # (Auto) Sodium Potassium Chloride Carbon Dioxide Anion Gap BUN Creatinine Est GFR ( Amer) Est GFR (Non-Af Amer) POC Glucose (mg/dL) 216 H Random Glucose Calcium Total Bilirubin AST ALT Alkaline Phosphatase Total Creatine Kinase CK-MB (Mass) Troponin I NT-Pro-B Natriuret Pep Total Protein Albumin Globulin Albumin/Globulin Ratio
--- NOTE | 2017-09-23 12:32 | CP.PCM.CON ---
Past Patient History - Past Medical History & Family History Past Medical History?: Yes - Past Social History Smoking Status: Former Smoker - CARDIAC Hx Atrial Fibrillation: Yes Hx Hypertension: Yes - PULMONARY Hx Chronic Obstructive Pulmonary Disease (COPD): Yes Hx Sleep Apnea: Yes - HEENT Hx Glaucoma: Yes - RENAL Hx Renal Failure: Yes - ENDOCRINE/METABOLIC Hx Diabetes Mellitus Type 1: Yes - MUSCULOSKELETAL/RHEUMATOLOGICAL Hx Falls: No - GASTROINTESTINAL Hx Gastroesophageal Reflux: Yes - GENITOURINARY/GYNECOLOGICAL Other/Comment: Obstructive and reflux uropathy - PSYCHIATRIC Hx Depression: Yes (Major depressive) Hx Substance Use: No - SURGICAL HISTORY Hx Surgeries: No - ANESTHESIA Hx Anesthesia: No Meds Allergies/Adverse Reactions: Allergies Allergy/AdvReac Type Severity Reaction Status Date / Time No Known Allergies Allergy Verified 09/23/17 03:57 - Medications Medications: Current Medications Albuterol/Ipratropium (Duoneb 3 Mg/0.5 Mg (3 Ml) Ud) 3 ml INH RQ6 [facility] Aspirin (Aspirin) 325 mg PO DAILY [facility] Enoxaparin Sodium (Lovenox) 40 mg SC DAILY [facility] Insulin Aspart (Novolog) 0 unit SC QID [facility] PRN Reason: Protocol Methylprednisolone (Solu-Medrol) 40 mg IVP Q8 [facility] Pantoprazole Sodium (Protonix Ec Tab) 40 mg PO DAILY [facility] Fluticasone/Salmeterol (Advair Diskus 250/50) 1 puff INH RQ12 [facility] Results - Vital Signs Recent Vital Signs: Last Vital Signs Temp 98.6 F 09/23/17 06:19 Pulse 60 09/23/17 11:47 Resp 18 09/23/17 11:47 BP 111/64 09/23/17 11:47 Pulse Ox 97 09/23/17 11:47 - Labs Result Diagrams: 09/23/17 04:02 09/23/17 04:02 Labs: Laboratory Results - last 24 hr 09/23/17 09/23/17 09/23/17 04:02 04:02 11:02 WBC 8.8 RBC 4.52 Hgb 14.3 Hct 42.5 MCV 94.0 MCH 31.7 H MCHC 33.7 RDW 14.2 Plt Count 127 L MPV 8.3 Neut % (Auto) 76.9 H Lymph % (Auto) 11.8 L [place] % (Auto) 8.3 Eos % (Auto) 2.1 Baso % (Auto) 0.9 Neut # (Auto) 6.7 Lymph # (Auto) 1.0 [place] # (Auto) 0.7 Eos # (Auto) 0.2 Baso # (Auto) 0.1 Sodium 142 Potassium 4.5 Chloride 106 Carbon Dioxide 25 Anion Gap 15 BUN 18 Creatinine 1.0 Est GFR ( Amer) > 60 Est GFR (Non-Af Amer) > 60 POC Glucose (mg/dL) Random Glucose 99 Calcium 8.6 Total Bilirubin 0.8 AST 29 ALT 14 L D Alkaline Phosphatase 55 Total Creatine Kinase 47 L CK-MB (Mass) 1.49 Troponin I 0.0410 0.0320 NT-Pro-B Natriuret Pep 350 Total Protein 7.2 Albumin 4.0 Globulin 3.2 Albumin/Globulin Ratio 1.3 09/23/17 12:16 WBC RBC Hgb Hct MCV MCH MCHC RDW Plt Count MPV Neut % (Auto) Lymph % (Auto) [place] % (Auto) Eos % (Auto) Baso % (Auto) Neut # (Auto) Lymph # (Auto) [place] # (Auto) Eos # (Auto) Baso # (Auto) Sodium Potassium Chloride Carbon Dioxide Anion Gap BUN Creatinine Est GFR ( Amer) Est GFR (Non-Af Amer) POC Glucose (mg/dL) 216 H Random Glucose Calcium Total Bilirubin AST ALT Alkaline Phosphatase Total Creatine Kinase CK-MB (Mass) Troponin I NT-Pro-B Natriuret Pep Total Protein Albumin Globulin Albumin/Globulin Ratio
[2017-09-23] MEDS ORDERED: (Novolog) Insulin Aspart, Recombinant 100 u/ml 10 ml vial ONE (12:36)
[2017-09-23] MEDS: Pantoprazole 40 mg EC Tab PO SCH (12:37)
[2017-09-23] MEDS: Enoxaparin 40 mg Syringe SC SCH (12:37)
[2017-09-23] MEDS: (Novolog) Insulin Aspart, Recombinant 100 u/ml 10 ml vial SC SCH ×3 (12:37→22:12)
[2017-09-23] MEDS ORDERED: VILANTEROL TR IH SCH (12:45)
[2017-09-23] MEDS ORDERED: UMECLIDINIUM BRM IH SCH (12:45)
[2017-09-23] MEDS ORDERED: Home Med 1 UNIT (Brimonidine 0.15% [Alphagan P 0.15% Opht] 1 DROP) OD SCH (14:00)
[2017-09-23] MEDS: MethylPREDNISolone 40 mg Vial IVP SCH ×2 (14:19→21:22)
[2017-09-23] MEDS: GlipiZIDE 2.5 mg SR Tab PO SCH (14:19)
[2017-09-23] MEDS: Albuterol-Ipratrop 3 mg / 0.5 (3 ml) UD INH SCH (14:37)
[2017-09-23] MEDS: PILOCARPINE 1% OU SCH ×2 (14:51→17:48)
[2017-09-23] MEDS: Brimonidine 0.2% Opth Sol (5ml) OD SCH ×2 (15:17→17:48)
--- NOTE | 2017-09-23 15:58 | CP.PCM.HP ---
Past Patient History - Past Medical History & Family History Past Medical History?: Yes - Past Social History Smoking Status: Former Smoker - CARDIAC Hx Atrial Fibrillation: Yes Hx Hypertension: Yes - PULMONARY Hx Chronic Obstructive Pulmonary Disease (COPD): Yes Hx Sleep Apnea: Yes - HEENT Hx Glaucoma: Yes - RENAL Hx Renal Failure: Yes - ENDOCRINE/METABOLIC Hx Diabetes Mellitus Type 1: Yes - MUSCULOSKELETAL/RHEUMATOLOGICAL Hx Falls: No - GASTROINTESTINAL Hx Gastroesophageal Reflux: Yes - GENITOURINARY/GYNECOLOGICAL Other/Comment: Obstructive and reflux uropathy - PSYCHIATRIC Hx Depression: Yes (Major depressive) Hx Substance Use: No - SURGICAL HISTORY Hx Surgeries: No - ANESTHESIA Hx Anesthesia: No Meds Allergies/Adverse Reactions: Allergies Allergy/AdvReac Type Severity Reaction Status Date / Time No Known Allergies Allergy Verified 09/23/17 03:57 Physical Exam - Constitutional Appears: Well - Head Exam Head Exam: ATRAUMATIC, NORMAL INSPECTION, NORMOCEPHALIC - Eye Exam Eye Exam: EOMI, Normal appearance, PERRL Pupil Exam: NORMAL ACCOMODATION, PERRL - ENT Exam ENT Exam: Mucous Membranes Moist, Normal Exam - Neck Exam Neck exam: Positive for: Normal Inspection - Respiratory Exam Respiratory Exam: Decreased Breath Sounds - Cardiovascular Exam Cardiovascular Exam: REGULAR RHYTHM, +S1, +S2 - GI/Abdominal Exam GI & Abdominal Exam: Diminished Bowel Sounds, Soft - Rectal Exam Rectal Exam: Deferred Results - Vital Signs Recent Vital Signs: Last Vital Signs Temp 97.8 F 09/23/17 15:40 Pulse 60 09/23/17 15:40 Resp 18 09/23/17 15:40 BP 144/64 09/23/17 15:40 Pulse Ox 97 09/23/17 15:40 - Labs Result Diagrams: 09/23/17 04:02 09/23/17 04:02 Labs: Laboratory Results - last 24 hr 09/23/17 09/23/17 09/23/17 04:02 04:02 11:02 WBC 8.8 RBC 4.52 Hgb 14.3 Hct 42.5 MCV 94.0 MCH 31.7 H MCHC 33.7 RDW 14.2 Plt Count 127 L MPV 8.3 Neut % (Auto) 76.9 H Lymph % (Auto) 11.8 L [place] % (Auto) 8.3 Eos % (Auto) 2.1 Baso % (Auto) 0.9 Neut # (Auto) 6.7 Lymph # (Auto) 1.0 [place] # (Auto) 0.7 Eos # (Auto) 0.2 Baso # (Auto) 0.1 Sodium 142 Potassium 4.5 Chloride 106 Carbon Dioxide 25 Anion Gap 15 BUN 18 Creatinine 1.0 Est GFR ( Amer) > 60 Est GFR (Non-Af Amer) > 60 POC Glucose (mg/dL) Random Glucose 99 Calcium 8.6 Total Bilirubin 0.8 AST 29 ALT 14 L D Alkaline Phosphatase 55 Total Creatine Kinase 47 L CK-MB (Mass) 1.49 Troponin I 0.0410 0.0320 NT-Pro-B Natriuret Pep 350 Total Protein 7.2 Albumin 4.0 Globulin 3.2 Albumin/Globulin Ratio 1.3 09/23/17 12:16 WBC RBC Hgb Hct MCV MCH MCHC RDW Plt Count MPV Neut % (Auto) Lymph % (Auto) [place] % (Auto) Eos % (Auto) Baso % (Auto) Neut # (Auto) Lymph # (Auto) [place] # (Auto) Eos # (Auto) Baso # (Auto) Sodium Potassium Chloride Carbon Dioxide Anion Gap BUN Creatinine Est GFR ( Amer) Est GFR (Non-Af Amer) POC Glucose (mg/dL) 216 H Random Glucose Calcium Total Bilirubin AST ALT Alkaline Phosphatase Total Creatine Kinase CK-MB (Mass) Troponin I NT-Pro-B Natriuret Pep Total Protein Albumin Globulin Albumin/Globulin Ratio
[2017-09-23 21:56] LABS: SQUAMOUS EPITHIAL 1 /hpf (0-5); URINE BACTERIA RARE (<OCC); URINE BILIRUBIN NEGATIVE (NEGATIVE); URINE BLOOD NEGATIVE (NEGATIVE); URINE CLARITY Clear (Clear); URINE COLOR Yellow (YELLOW); URINE GLUCOSE (UA) NORMAL (Normal); URINE LEUKOCYTE ESTERASE NEG Leu/uL (Negative); URINE PROTEIN NEGATIVE (NEGATIVE); URINE UROBILINOGEN NORMAL mg/dL (0.2-1.0)
[2017-09-23] MEDS ORDERED: LACTULOSE PO SCH (22:00)
[2017-09-24] MEDS: Albuterol-Ipratrop 3 mg / 0.5 (3 ml) UD INH SCH ×4 (03:36→19:42)
[2017-09-24] MEDS: MethylPREDNISolone 40 mg Vial IVP SCH ×3 (06:19→21:58)
[2017-09-24] MEDS: Fluticasone-Salmeterol 250-50mcg Diskus INH SCH ×2 (08:05→19:43)
[2017-09-24] MEDS ORDERED: VILANTEROL TR IH SCH (10:00)
[2017-09-24] MEDS ORDERED: UMECLIDINIUM BRM IH SCH (10:00)
[2017-09-24] MEDS: Enoxaparin 40 mg Syringe SC SCH (10:23)
[2017-09-24] MEDS: Pantoprazole 40 mg EC Tab PO SCH (10:23)
[2017-09-24] MEDS: GlipiZIDE 2.5 mg SR Tab PO SCH (10:23)
[2017-09-24] MEDS: Brimonidine 0.2% Opth Sol (5ml) OD SCH ×3 (10:24→17:41)
[2017-09-24] MEDS: PILOCARPINE 1% OU SCH ×3 (10:25→17:41)
[2017-09-24] MEDS: (Novolog) Insulin Aspart, Recombinant 100 u/ml 10 ml vial SC SCH ×3 (12:01→21:50)
--- NOTE | 2017-09-24 18:18 | CP.PCM.PN ---
Subjective - Date & Time of Evaluation Date of Evaluation: 09/24/17 Time of Evaluation: 18:00 - Subjective Subjective: sitting in bed eating. no chest pain Objective - Vital Signs/Intake and Output Vital Signs (last 24 hours): Temp Pulse Resp BP Pulse Ox 98.2 F 61 20 124/61 95 09/24/17 15:00 09/24/17 16:00 09/24/17 15:00 09/24/17 15:00 09/24/17 15:00 - Medications Medications: Current Medications Acetazolamide (Diamox 250 Mg Tab) 250 mg PO BID [facility] Last Admin: 09/24/17 17:41 Dose: 250 mg Albuterol/Ipratropium (Duoneb 3 Mg/0.5 Mg (3 Ml) Ud) 3 ml INH RQ6 [facility] Last Admin: 09/24/17 13:41 Dose: 3 ml Aspirin (Aspirin) 325 mg PO DAILY [facility] Last Admin: 09/24/17 10:23 Dose: 325 mg Benzonatate (Tessalon Perles) 100 mg PO Q8 [facility] Last Admin: 09/24/17 13:16 Dose: 100 mg Brimonidine Tartrate (Alphagan 0.2% Opht) 0 ml OD TID [facility] Last Admin: 09/24/17 17:41 Dose: 1 drop Bumetanide (Bumex) 0.5 mg PO DAILY [facility] Last Admin: 09/24/17 10:23 Dose: 0.5 mg Citalopram Hydrobromide (Celexa) 20 mg PO DAILY [facility] Last Admin: 09/24/17 10:23 Dose: 20 mg Enoxaparin Sodium (Lovenox) 40 mg SC DAILY [facility] Last Admin: 09/24/17 10:23 Dose: 40 mg Finasteride (Proscar) 5 mg PO DAILY [facility] Last Admin: 09/24/17 10:23 Dose: 5 mg Glipizide (Glucotrol Xl) 2.5 mg PO DAILY [facility] Last Admin: 09/24/17 10:23 Dose: 2.5 mg Insulin Aspart (Novolog) 0 unit SC ACHS [facility] PRN Reason: Protocol Last Admin: 09/24/17 17:41 Dose: 3 unit Lactulose (Enulose) 20 gm PO HS [facility] Losartan Potassium (Cozaar) 100 mg PO DAILY [facility] Last Admin: 09/24/17 10:23 Dose: 100 mg Methylprednisolone (Solu-Medrol) 40 mg IVP Q8 [facility] Last Admin: 09/24/17 13:16 Dose: 40 mg Pantoprazole Sodium (Protonix Ec Tab) 40 mg PO DAILY [facility] Last Admin: 09/24/17 10:23 Dose: 40 mg Pilocarpine HCl (Isopto Carpine 1% Opht Soln) 1 drop OU TID [facility] Last Admin: 09/24/17 17:41 Dose: 1 drop Fluticasone/Salmeterol (Advair Diskus 250/50) 1 puff INH RQ12 [facility] Last Admin: 09/24/17 08:05 Dose: 1 puff Tamsulosin HCl (Flomax) 0.4 mg PO DAILY [facility] Last Admin: 09/24/17 10:23 Dose: 0.4 mg - Labs Labs: 09/23/17 04:02 09/23/17 04:02 - Constitutional Appears: Non-toxic - Head Exam Head Exam: NORMAL INSPECTION - Eye Exam Eye Exam: Normal appearance - ENT Exam ENT Exam: Mucous Membranes Moist - Neck Exam Neck Exam: Full ROM - Respiratory Exam Respiratory Exam: Decreased Breath Sounds - Cardiovascular Exam Cardiovascular Exam: REGULAR RHYTHM, Murmur - GI/Abdominal Exam GI & Abdominal Exam: Normal Bowel Sounds - Rectal Exam Rectal Exam: Deferred - Extremities Exam Extremities Exam: absent: Pedal Edema - Back Exam Back Exam: NORMAL INSPECTION - Neurological Exam Neurological Exam: Alert - Psychiatric Exam Psychiatric exam: Normal Affect - Skin Skin Exam: Normal Color Assessment and Plan (1) Chest pain Assessment & Plan: cardiac enzymes negative. has moderate to severe by echo. will schedule outpatient follow up. Status: Acute (2) CAD (coronary artery disease) Status: Acute (3) HTN (hypertension) Status: Acute
--- NOTE | 2017-09-24 18:59 | CP.PCM.PN ---
Subjective - Date & Time of Evaluation Date of Evaluation: 09/24/17 Time of Evaluation: 09:20 - Subjective Subjective: clinically same Objective - Vital Signs/Intake and Output Vital Signs (last 24 hours): Temp Pulse Resp BP Pulse Ox 98.2 F 61 20 124/61 95 09/24/17 15:00 09/24/17 16:00 09/24/17 15:00 09/24/17 15:00 09/24/17 15:00 - Medications Medications: Current Medications Acetazolamide (Diamox 250 Mg Tab) 250 mg PO BID [facility] Last Admin: 09/24/17 17:41 Dose: 250 mg Albuterol/Ipratropium (Duoneb 3 Mg/0.5 Mg (3 Ml) Ud) 3 ml INH RQ6 [facility] Last Admin: 09/24/17 13:41 Dose: 3 ml Aspirin (Aspirin) 325 mg PO DAILY [facility] Last Admin: 09/24/17 10:23 Dose: 325 mg Benzonatate (Tessalon Perles) 100 mg PO Q8 [facility] Last Admin: 09/24/17 13:16 Dose: 100 mg Brimonidine Tartrate (Alphagan 0.2% Opht) 0 ml OD TID [facility] Last Admin: 09/24/17 17:41 Dose: 1 drop Bumetanide (Bumex) 0.5 mg PO DAILY [facility] Last Admin: 09/24/17 10:23 Dose: 0.5 mg Citalopram Hydrobromide (Celexa) 20 mg PO DAILY [facility] Last Admin: 09/24/17 10:23 Dose: 20 mg Enoxaparin Sodium (Lovenox) 40 mg SC DAILY [facility] Last Admin: 09/24/17 10:23 Dose: 40 mg Finasteride (Proscar) 5 mg PO DAILY [facility] Last Admin: 09/24/17 10:23 Dose: 5 mg Glipizide (Glucotrol Xl) 2.5 mg PO DAILY [facility] Last Admin: 09/24/17 10:23 Dose: 2.5 mg Insulin Aspart (Novolog) 0 unit SC [facility] PRN Reason: Protocol Last Admin: 09/24/17 17:41 Dose: 3 unit Lactulose (Enulose) 20 gm PO HS [facility] Losartan Potassium (Cozaar) 100 mg PO DAILY [facility] Last Admin: 09/24/17 10:23 Dose: 100 mg Methylprednisolone (Solu-Medrol) 40 mg IVP Q8 [facility] Last Admin: 09/24/17 13:16 Dose: 40 mg Pantoprazole Sodium (Protonix Ec Tab) 40 mg PO DAILY [facility] Last Admin: 09/24/17 10:23 Dose: 40 mg Pilocarpine HCl (Isopto Carpine 1% Opht Soln) 1 drop OU TID [facility] Last Admin: 09/24/17 17:41 Dose: 1 drop Fluticasone/Salmeterol (Advair Diskus 250/50) 1 puff INH RQ12 [facility] Last Admin: 09/24/17 08:05 Dose: 1 puff Tamsulosin HCl (Flomax) 0.4 mg PO DAILY [facility] Last Admin: 09/24/17 10:23 Dose: 0.4 mg - Labs Labs: 09/23/17 04:02 09/23/17 04:02 - Constitutional Appears: Well - Head Exam Head Exam: ATRAUMATIC, NORMAL INSPECTION, NORMOCEPHALIC - Eye Exam Eye Exam: EOMI, Normal appearance, PERRL Pupil Exam: NORMAL ACCOMODATION, PERRL - ENT Exam ENT Exam: Mucous Membranes Moist, Normal Exam - Neck Exam Neck Exam: Full ROM, Normal Inspection. absent: Lymphadenopathy - Respiratory Exam Respiratory Exam: Decreased Breath Sounds - Cardiovascular Exam Cardiovascular Exam: REGULAR RHYTHM, +S1, +S2 - GI/Abdominal Exam GI & Abdominal Exam: Soft, Diminished Bowel Sounds - Rectal Exam Rectal Exam: Deferred
[2017-09-25] MEDS: MethylPREDNISolone 40 mg Vial IVP SCH ×2 (05:19→21:49)
[2017-09-25] MEDS: (Novolog) Insulin Aspart, Recombinant 100 u/ml 10 ml vial SC SCH ×4 (07:22→21:44)
[2017-09-25 07:49] LABS: BASO % 0.1 % (0.0-2.0); LYMPH # 0.5 K/uL (1.0-4.3); LYMPH % 3.3 % (20.0-40.0); MEAN CELL VOLUME 95.2 fL (80.0-94.0); MEAN CORPUSCULAR HEMOGLOBIN 31.2 pg (27.0-31.0); MEAN CORPUSCULAR HGB CONC 32.8 g/dL (33.0-37.0); MEAN PLATELET VOLUME 8.8 fL (7.2-11.7); MONO # 0.5 K/uL (0.0-0.8); MONO % 3.2 % (0.0-10.0); NEUT # 13.3 K/uL (1.8-7.0); NEUT % 93.4 % (50.0-75.0); PLATELET COUNT 161 K/uL (130-400); RBC 4.49 Mil/uL (4.40-5.90)
[2017-09-25] MEDS: Albuterol-Ipratrop 3 mg / 0.5 (3 ml) UD INH SCH ×3 (07:54→19:29)
[2017-09-25] MEDS: Fluticasone-Salmeterol 250-50mcg Diskus INH SCH ×2 (07:54→19:29)
[2017-09-25 08:02] LABS: WHITE BLOOD COUNT 14.3 K/uL (4.8-10.8)
[2017-09-25 08:03] LABS: ALB/GLOB RATIO 1.3 (1.0-2.1); ALBUMIN 3.6 g/dL (3.5-5.0); ALT/SGPT 10 U/L (21-72); AST/SGOT 14 U/L (17-59); BLOOD UREA NITROGEN 27 mg/dL (9-20); CALCIUM 8.4 mg/dl (8.6-10.4); GFR AFRICAN-AMERICAN > 60; GFR NON-AFRICAN AMERICAN > 60
[2017-09-25 08:47] LABS: LYMPHOCYTE 4 % (20-40); MONOCYTE 3 % (0-10); NEUTROPHIL 93 % (50-75); PLATELET ESTIMATE NORMAL (NORMAL); TOTAL CELLS COUNTED 100
[2017-09-25] MEDS: Pantoprazole 40 mg EC Tab PO SCH (09:40)
[2017-09-25] MEDS: GlipiZIDE 2.5 mg SR Tab PO SCH (09:41)
[2017-09-25] MEDS: Brimonidine 0.2% Opth Sol (5ml) OD SCH ×3 (09:42→18:00)
[2017-09-25] MEDS: PILOCARPINE 1% OU SCH ×3 (09:42→18:00)
[2017-09-25] MEDS: Enoxaparin 40 mg Syringe SC SCH (09:42)
--- NOTE | 2017-09-25 14:46 | RAD ---
Chest x-ray single frontal view History: Shortness of breath. Comparison: 09/23/2017 Findings: Small to moderate left and small right pleural effusion. Diffuse increased interstitial lung markings suggestive for underlying edema and or infiltrate. Patchy increased markings at both lung bases. Cardiomegaly. Calcification at the aortic knob. Tortuous ectatic aorta. Left-sided pacemaker. Degenerative changes in the spine and shoulders. Impression: Small to moderate left and small right pleural effusion. Diffuse increased interstitial lung markings suggestive for underlying edema and or infiltrate. Patchy increased markings at both lung bases. Cardiomegaly. Calcification at the aortic knob. Tortuous ectatic aorta. Left-sided pacemaker. Degenerative changes in the spine and shoulders. Post treatment interval followup exam would be helpful to ensure resolution particularly at the level of the left lung base.
--- NOTE | 2017-09-25 15:27 | CP.PCM.PN ---
Subjective - Date & Time of Evaluation Date of Evaluation: 09/25/17 Time of Evaluation: 11:00 - Subjective Subjective: PGY-[address] Soriano Patient seen and examined at bedside. No acute events overnight. Patient is resting in bed comfortably with [place] oxygen at 2L. Patient complains of shortness of breath when he changes positions in bed. Patient denies of fever, chills, headache, chest pain, nausea, vomiting or diarrhea. Objective - Vital Signs/Intake and Output Vital Signs (last 24 hours): Temp Pulse Resp BP Pulse Ox 97.2 F L 60 20 116/78 97 09/25/17 07:00 09/25/17 07:40 09/25/17 07:00 09/25/17 07:00 09/25/17 07:00 - Medications Medications: Current Medications Acetazolamide (Diamox 250 Mg Tab) 250 mg PO BID [facility] Last Admin: 09/25/17 09:41 Dose: 250 mg Albuterol/Ipratropium (Duoneb 3 Mg/0.5 Mg (3 Ml) Ud) 3 ml INH RQ6 [facility] Last Admin: 09/25/17 13:24 Dose: 3 ml Aspirin (Aspirin) 325 mg PO DAILY [facility] Last Admin: 09/25/17 09:40 Dose: 325 mg Benzonatate (Tessalon Perles) 100 mg PO Q8 [facility] Last Admin: 09/25/17 13:40 Dose: 100 mg Brimonidine Tartrate (Alphagan 0.2% Opht) 0 ml OD TID [facility] Last Admin: 09/25/17 13:40 Dose: 1 drop Bumetanide (Bumex) 0.5 mg PO DAILY [facility] Last Admin: 09/25/17 09:41 Dose: 0.5 mg Citalopram Hydrobromide (Celexa) 20 mg PO DAILY [facility] Last Admin: 09/25/17 09:40 Dose: 20 mg Enoxaparin Sodium (Lovenox) 40 mg SC DAILY [facility] Last Admin: 09/25/17 09:42 Dose: 40 mg Finasteride (Proscar) 5 mg PO DAILY [facility] Last Admin: 09/25/17 09:40 Dose: 5 mg Glipizide (Glucotrol Xl) 2.5 mg PO DAILY [facility] Last Admin: 09/25/17 09:41 Dose: 2.5 mg Insulin Aspart (Novolog) 0 unit SC ACHS [facility] PRN Reason: Protocol Last Admin: 09/25/17 12:30 Dose: 4 unit Lactulose (Enulose) 20 gm PO HS [facility] Last Admin: 09/24/17 21:58 Dose: 20 gm Losartan Potassium (Cozaar) 100 mg PO DAILY [facility] Last Admin: 09/25/17 09:40 Dose: 100 mg Methylprednisolone (Solu-Medrol) 40 mg IVP Q12 [facility] Pantoprazole Sodium (Protonix Ec Tab) 40 mg PO DAILY [facility] Last Admin: 09/25/17 09:40 Dose: 40 mg Pilocarpine HCl (Isopto Carpine 1% Opht Soln) 1 drop OU TID [facility] Last Admin: 09/25/17 13:40 Dose: 1 drop Fluticasone/Salmeterol (Advair Diskus 250/50) 1 puff INH RQ12 [facility] Last Admin: 09/25/17 07:54 Dose: 1 puff Tamsulosin HCl (Flomax) 0.4 mg PO DAILY [facility] Last Admin: 09/25/17 09:40 Dose: 0.4 mg - Labs Labs: 09/25/17 07:13 09/25/17 07:13 - Additional Findings Additional findings: - Constitutional Appears: Non-toxic - Head Exam Head Exam: NORMAL INSPECTION - Eye Exam Eye Exam: Normal appearance - ENT Exam ENT Exam: Mucous Membranes Moist - Neck Exam Neck Exam: Full ROM - Respiratory Exam Respiratory Exam: Decreased Breath Sounds, no wheezes, no crackles - Cardiovascular Exam Cardiovascular Exam: REGULAR RHYTHM, Murmur - GI/Abdominal Exam GI & Abdominal Exam: Normal Bowel Sounds - Extremities Exam Extremities Exam: absent: Pedal Edema - Back Exam Back Exam: NORMAL INSPECTION - Neurological Exam Neurological Exam: Alert - Psychiatric Exam Psychiatric exam: Normal Affect - Skin Skin Exam: Normal Color Assessment and Plan - Assessment and Plan (Free Text) Assessment: Chest pain, resolved -Troponin negative x2 -Echo showed moderate to severe , cardio recommends outpatient workup -Cardiology consulted, Dr. Javier help appreciated -Cardiology recommends continue medical management -ASA 325mg COPD -Solumedrol 40mg IV Q12 taper -Benzonatate 100mg Q8 -Advair Diskus INH Q12h -Pulmonary consulted, Dr. Arthur help appreciated HTN -Losartan 100mg po DM -Glipizide 2.5mg po -ISS low -accucheck BPH -Flomax 0.4mg po -Froscar 5mg po Prophylactic measures -Lovenox -Protonix Discussed with attending Dr. Soriano All management per Dr. Soriano
--- NOTE | 2017-09-25 17:22 | CARD ---
APPROVED REPORT EXAM: Two-dimensional and M-mode echocardiogram with Doppler and color Doppler. Other Information Quality : AverageRhythm : NSR INDICATION Dyspnea CAD COPD Surgery/Intervention Status/Post Aortic Valve Replacement: RISK FACTORS Hypertension 2D DIMENSIONS LVOT Diameter2.0 (1.8-2.4cm) M-Mode DIMENSIONS RVDd1.57 (2.1-3.2cm)Left Atrium (MM)4.53 (2.5-4.0cm) IVSd1.57 (0.7-1.1cm)Aortic Root2.97 (2.2-3.7cm) LVDd6.02 (4.0-5.6cm)PWd1.48 (0.7-1.1cm) FS (%) 28 %LVDs4.33 (2.0-3.8cm) LVEF (%)50 (>50%) Aortic Valve AoV Peak Foibjqrt671.1cm/sAoV VTI80.9cmAO Peak GR.39mmHg LVOT Peak Ecguqhaj189.2cm/sLVOT VTI29.69cmAO Mean GR.21mmHg CORA (VMAX)1.43ti8UAU (VTI)1.19cm2 Mitral Valve MV E Rtzmrmkg644.0cm/sMV A Lzvsnllg788.0cm/sMV ORI21zs E/A ratio1.1MVA (PHT)2.94cm2 TDI E/Lateral E'0.0E/Medial E'0.0 Tricuspid Valve TR Peak Siqwjbya994pp/sTR Peak Gr.22ziZlQZIU45xaVk LEFT VENTRICLE The Left Ventricle is moderately dilated. There is moderate concentric left ventricular hypertrophy. The systolic function is mildly impaired. Septal motion consistent with ventricular pacemaker. Transmitral Doppler flow pattern is Grade II-pseudonormal filling dynamics. Elevated left atrial pressure. RIGHT VENTRICLE The right ventricle is moderately dilated. Systolic function is mildly reduced. There is a pacemaker lead in the right ventricle. ATRIA The left atrium is moderately dilated. The right atrium is mild;y to A pacemaker is seen in the right atrium. AORTIC VALVE The aortic valve is moderately calcified and displays decreased opening. There is moderate valvular aortic stenosis. Calculated aortic valve area is 1.2 cm2 with maximum pressure gradient of 40 mmHg and mean pressure gradient of 22 mmHg. MITRAL VALVE Prominent mitral annular calcification noted. A prosthetic ring cannot be excluded. Mitral regurgitation is trace to mild. TRICUSPID VALVE The tricuspid valve is normal in structure. There is moderate tricuspid regurgitation. Right ventricular systolic pressure is estimated at - 51 mmHg. There is moderate pulmonary hypertension. PULMONIC VALVE The pulmonic valve is grossly normal in structure and function. GREAT VESSELS The aortic root is normal in size. The aortic root displays moderate sclerocalcific changes. The IVC is normal in size and collapses >50% with inspiration. PERICARDIAL EFFUSION There is no pericardial effusion. <Conclusion> There is moderate concentric left ventricular hypertrophy. The systolic function is mildly impaired. Septal motion probably due to ventricular pacemaker. Transmitral Doppler flow pattern is Grade II-pseudonormal filling dynamics. Elevated left atrial pressure. The right ventricle is moderately dilated. Systolic function is mildly reduced. Moderate bi-atrial enlargement. There is moderate calcific valvular aortic stenosis. Calculated aortic valve area is 1.2 cm2 with maximum pressure gradient of 40 mmHg and mean pressure gradient of 22 mmHg. Prominent mitral annular calcification noted. A prosthetic ring cannot be excluded. Trace to mild mitral regurgitation. There is moderate pulmonary hypertension. Right ventricular systolic pressure is estimated at - 51 mmHg. There is no pericardial effusion.
--- NOTE | 2017-09-25 18:56 | CP.PCM.PN ---
Subjective - Date & Time of Evaluation Date of Evaluation: 09/25/17 - Subjective Subjective: sob better Objective - Vital Signs/Intake and Output Vital Signs (last 24 hours): Temp Pulse Resp BP Pulse Ox 97.7 F 60 22 113/66 96 09/25/17 16:33 09/25/17 18:44 09/25/17 16:33 09/25/17 16:33 09/25/17 16:33 - Medications Medications: Current Medications Acetazolamide (Diamox 250 Mg Tab) 250 mg PO BID [facility] Last Admin: 09/25/17 09:41 Dose: 250 mg Albuterol/Ipratropium (Duoneb 3 Mg/0.5 Mg (3 Ml) Ud) 3 ml INH RQ6 [facility] Last Admin: 09/25/17 13:24 Dose: 3 ml Aspirin (Aspirin) 325 mg PO DAILY [facility] Last Admin: 09/25/17 09:40 Dose: 325 mg Benzonatate (Tessalon Perles) 100 mg PO Q8 [facility] Last Admin: 09/25/17 13:40 Dose: 100 mg Brimonidine Tartrate (Alphagan 0.2% Opht) 0 ml OD TID [facility] Last Admin: 09/25/17 13:40 Dose: 1 drop Bumetanide (Bumex) 0.5 mg PO DAILY [facility] Last Admin: 09/25/17 09:41 Dose: 0.5 mg Citalopram Hydrobromide (Celexa) 20 mg PO DAILY [facility] Last Admin: 09/25/17 09:40 Dose: 20 mg Enoxaparin Sodium (Lovenox) 40 mg SC DAILY [facility] Last Admin: 09/25/17 09:42 Dose: 40 mg Finasteride (Proscar) 5 mg PO DAILY [facility] Last Admin: 09/25/17 09:40 Dose: 5 mg Glipizide (Glucotrol Xl) 2.5 mg PO DAILY [facility] Last Admin: 09/25/17 09:41 Dose: 2.5 mg Insulin Aspart (Novolog) 0 unit SC ACHS [facility] PRN Reason: Protocol Last Admin: 09/25/17 12:30 Dose: 4 unit Lactulose (Enulose) 20 gm PO HS [facility] Last Admin: 09/24/17 21:58 Dose: 20 gm Losartan Potassium (Cozaar) 100 mg PO DAILY [facility] Last Admin: 09/25/17 09:40 Dose: 100 mg Methylprednisolone (Solu-Medrol) 40 mg IVP Q12 [facility] Pantoprazole Sodium (Protonix Ec Tab) 40 mg PO DAILY [facility] Last Admin: 09/25/17 09:40 Dose: 40 mg Pilocarpine HCl (Isopto Carpine 1% Opht Soln) 1 drop OU TID [facility] Last Admin: 09/25/17 13:40 Dose: 1 drop Fluticasone/Salmeterol (Advair Diskus 250/50) 1 puff INH RQ12 [facility] Last Admin: 09/25/17 07:54 Dose: 1 puff Tamsulosin HCl (Flomax) 0.4 mg PO DAILY [facility] Last Admin: 09/25/17 09:40 Dose: 0.4 mg - Labs Labs: 09/25/17 07:13 09/25/17 07:13
--- NOTE | 2017-09-25 20:03 | CP.PCM.CON ---
History of Present Illness - History of Present Illness History of Present Illness: CHART REVIEWED., PT SEEN AND EXAMINED. NOT NOTIFIED 77 YO W MALE WITH A HX COPD, CAD S/P CABG , AFIB,+PPM, HTN, DM, OBESITY, ?JIMMIE , TRANS FROM NH WITH INCREASED MOD ANT CP AT REST X 2 DAYS., +COUGH NO SPUTUM., AMBULATES WITH WALKER. SEEN BY CARDIO. Review of Systems - Review of Systems All systems: reviewed and no additional remarkable complaints except - Constitutional Constitutional: absent: Sleep Apnea - EENT Eyes: absent: Change in Vision Ears: absent: Dizziness Nose/Mouth/Throat: absent: Nasal Congestion - Cardiovascular Cardiovascular: absent: Chest Pain - Respiratory Respiratory: Cough, Dyspnea on Exertion - Gastrointestinal Gastrointestinal: absent: Nausea, Vomiting - Genitourinary Genitourinary: absent: Difficulty Urinating - Musculoskeletal Musculoskeletal: absent: Numbness - Integumentary Integumentary: absent: Rash - Neurological Neurological: absent: Loss of Vision - Psychiatric Psychiatric: absent: Depression - Endocrine Endocrine: absent: Excessive Sweating - Hematologic/Lymphatic Hematologic: absent: Easy Bleeding Past Patient History - Past Medical History & Family History Past Medical History?: Yes Past Family History: Reviewed and not pertinent - Past Social History Smoking Status: Former Smoker - CARDIAC Hx Cardiac Disorders: Yes Hx Atrial Fibrillation: Yes Hx Hypertension: Yes - PULMONARY Hx Chronic Obstructive Pulmonary Disease (COPD): Yes Hx Sleep Apnea: Yes - HEENT Hx Glaucoma: Yes - RENAL Hx Renal Failure: Yes - ENDOCRINE/METABOLIC Hx Diabetes Mellitus Type 1: Yes - HEMATOLOGICAL/ONCOLOGICAL Hx Blood Disorders: No - INTEGUMENTARY Hx Dermatological Problems: No - MUSCULOSKELETAL/RHEUMATOLOGICAL Hx Falls: No - GASTROINTESTINAL Hx Gastroesophageal Reflux: Yes - GENITOURINARY/GYNECOLOGICAL Hx Genitourinary Disorders: No Other/Comment: Obstructive and reflux uropathy - PSYCHIATRIC Hx Depression: Yes (Major depressive) Hx Substance Use: No - SURGICAL HISTORY Hx Surgeries: No - ANESTHESIA Hx Anesthesia: No Hx Anesthesia Reactions: No Hx Malignant Hyperthermia: No Has any member of the family had a problem w/ anesthesia?: No Meds Home Medications: Home Medication List Medication Instructions Recorded Confirmed Type Methylprednisolone [Medrol Dose 4 mg PO DAILY #21 mg 09/26/17 Rx Pack (21 tabs)] Allergies/Adverse Reactions: Allergies Allergy/AdvReac Type Severity Reaction Status Date / Time No Known Allergies Allergy Verified 09/23/17 03:57 - Medications Medications: Current Medications Acetazolamide (Diamox 250 Mg Tab) 250 mg PO BID [facility] Last Admin: 09/25/17 18:56 Dose: 250 mg Albuterol/Ipratropium (Duoneb 3 Mg/0.5 Mg (3 Ml) Ud) 3 ml INH RQ6 [facility] Last Admin: 09/25/17 19:29 Dose: 3 ml Aspirin (Aspirin) 325 mg PO DAILY [facility] Last Admin: 09/25/17 09:40 Dose: 325 mg Benzonatate (Tessalon Perles) 100 mg PO Q8 [facility] Last Admin: 09/25/17 13:40 Dose: 100 mg Brimonidine Tartrate (Alphagan 0.2% Opht) 0 ml OD TID [facility] Last Admin: 09/25/17 18:00 Dose: 1 drop Bumetanide (Bumex) 0.5 mg PO DAILY [facility] Last Admin: 09/25/17 09:41 Dose: 0.5 mg Citalopram Hydrobromide (Celexa) 20 mg PO DAILY [facility] Last Admin: 09/25/17 09:40 Dose: 20 mg Enoxaparin Sodium (Lovenox) 40 mg SC DAILY [facility] Last Admin: 09/25/17 09:42 Dose: 40 mg Finasteride (Proscar) 5 mg PO DAILY [facility] Last Admin: 09/25/17 09:40 Dose: 5 mg Glipizide (Glucotrol Xl) 2.5 mg PO DAILY [facility] Last Admin: 09/25/17 09:41 Dose: 2.5 mg Insulin Aspart (Novolog) 0 unit SC ACHS [facility] PRN Reason: Protocol Last Admin: 09/25/17 18:00 Dose: 2 unit Lactulose (Enulose) 20 gm PO HS [facility] Last Admin: 09/24/17 21:58 Dose: 20 gm Losartan Potassium (Cozaar) 100 mg PO DAILY [facility] Last Admin: 09/25/17 09:40 Dose: 100 mg Methylprednisolone (Solu-Medrol) 40 mg IVP Q12 [facility] Pantoprazole Sodium (Protonix Ec Tab) 40 mg PO DAILY [facility] Last Admin: 09/25/17 09:40 Dose: 40 mg Pilocarpine HCl (Isopto Carpine 1% Opht Soln) 1 drop OU TID [facility] Last Admin: 09/25/17 18:00 Dose: 1 drop Fluticasone/Salmeterol (Advair Diskus 250/50) 1 puff INH RQ12 [facility] Last Admin: 09/25/17 19:29 Dose: 1 puff Tamsulosin HCl (Flomax) 0.4 mg PO DAILY [facility] Last Admin: 09/25/17 09:40 Dose: 0.4 mg Physical Exam - Constitutional Appears: No Acute Distress - Head Exam Head Exam: ATRAUMATIC, NORMOCEPHALIC - Eye Exam Eye Exam: EOMI, Normal appearance - ENT Exam ENT Exam: Mucous Membranes Moist - Respiratory Exam Respiratory Exam: Prolonged Expiratory Phase, Wheezes. absent: Accessory Muscle Use - Cardiovascular Exam Cardiovascular Exam: RRR, +S1, +S2 - GI/Abdominal Exam GI & Abdominal Exam: Soft. absent: Tenderness - Rectal Exam Rectal Exam: Deferred - Extremities Exam Extremities exam: Negative for: calf tenderness Additional comments: CHRONIC CHANGES BILAT. - Back Exam Back exam: absent: CVA tenderness (L), CVA tenderness (R) - Neurological Exam Neurological exam: Alert, CN II-XII Intact - Psychiatric Exam Psychiatric exam: Normal Mood Results - Vital Signs Recent Vital Signs: Last Vital Signs Temp 97.7 F 09/25/17 16:33 Pulse 60 09/25/17 18:44 Resp 22 09/25/17 16:33 BP 113/66 09/25/17 16:33 Pulse Ox 96 09/25/17 16:33 - Labs Result Diagrams: 09/26/17 07:11 09/26/17 07:11 Labs: Laboratory Results - last 24 hr 09/24/17 09/25/17 09/25/17 21:17 06:19 07:13 WBC 14.3 H D RBC 4.49 Hgb 14.0 Hct 42.7 MCV 95.2 H MCH 31.2 H MCHC 32.8 L RDW 14.0 Plt Count 161 MPV 8.8 Neut % (Auto) 93.4 H Lymph % (Auto) 3.3 L [place] % (Auto) 3.2 Eos % (Auto) 0.0 Baso % (Auto) 0.1 Neut # (Auto) 13.3 H Lymph # (Auto) 0.5 L [place] # (Auto) 0.5 Eos # (Auto) 0.0 Baso # (Auto) 0.0 Neutrophils % (Manual) 93 H Lymphocytes % (Manual) 4 L Monocytes % (Manual) 3 Platelet Estimate Normal Sodium Potassium Chloride Carbon Dioxide Anion Gap BUN Creatinine Est GFR ( Amer) Est GFR (Non-Af Amer) POC Glucose (mg/dL) 180 H 135 H Random Glucose Calcium Total Bilirubin AST ALT Alkaline Phosphatase Total Protein Albumin Globulin Albumin/Globulin Ratio 09/25/17 09/25/17 09/25/17 07:13 11:34 17:05 WBC RBC Hgb Hct MCV MCH MCHC RDW Plt Count MPV Neut % (Auto) Lymph % (Auto) [place] % (Auto) Eos % (Auto) Baso % (Auto) Neut # (Auto) Lymph # (Auto) [place] # (Auto) Eos # (Auto) Baso # (Auto) Neutrophils % (Manual) Lymphocytes % (Manual) Monocytes % (Manual) Platelet Estimate Sodium 144 Potassium 3.9 Chloride 105 Carbon Dioxide 27 Anion Gap 16 BUN 27 H Creatinine 1.0 Est GFR ( Amer) > 60 Est GFR (Non-Af Amer) > 60 POC Glucose (mg/dL) 301 H 219 H Random Glucose 144 H Calcium 8.4 L Total Bilirubin 0.3 AST 14 L D ALT 10 L D Alkaline Phosphatase 56 Total Protein 6.5 Albumin 3.6 Globulin 2.9 Albumin/Globulin Ratio 1.3 Assessment & Plan (1) CHF (congestive heart failure) Status: Acute (2) Afib Status: Acute (3) Diabetes Status: Acute (4) Obesity Status: Acute (5) COPD exacerbation Status: Acute (6) CAD (coronary artery disease) Status: Acute (7) HTN (hypertension) Status: Acute (8) Aortic stenosis Status: Acute - Assessment and Plan (Free Text) Assessment: 77 YO MALE WITH A HX MULT MED PROBS ADM WITH UNSTABLE ANGINA, COPD EXAC, +CHF NOTED, RESP FAILURE, CONT NEB BD.,STEROIDS AND BREO. CHECK ABG ON 2L. MONITOR O2 SAT. DIURESIS TOLERATED, DIAMOX PER RENAL. F/U ECHO. CXR REVIEWED. GI/ DVT PROPHYLAXIS., PSG OUTPT. PROG GUARDED. DISCUSSED WITH STAFF AT LENGTH.
[2017-09-25 20:42] LABS: ARTERIAL BLOOD GAS HCO3 25.6 mmol/L (21-28); ARTERIAL BLOOD GAS HEMOGLOBIN 12.9 g/dL (11.7-17.4); ARTERIAL BLOOD GAS O2 SAT 99.6 % (95-98); ARTERIAL BLOOD GAS PCO2 58 mm/Hg (35-45); ARTERIAL BLOOD GAS PO2 88 mm/Hg (80-100); ARTERIAL BLOOD GAS TCO2 30.3 mmol/L (22-28)
[2017-09-26] MEDS: Albuterol-Ipratrop 3 mg / 0.5 (3 ml) UD INH SCH ×3 (02:58→13:22)
[2017-09-26 07:34] LABS: BASO % 0.1 % (0.0-2.0); HEMOGLOBIN 13.6 g/dL (12.0-18.0); LYMPH # 0.3 K/uL (1.0-4.3); LYMPH % 2.7 % (20.0-40.0); MEAN CELL VOLUME 96.1 fL (80.0-94.0); MEAN CORPUSCULAR HEMOGLOBIN 31.5 pg (27.0-31.0); MEAN CORPUSCULAR HGB CONC 32.7 g/dL (33.0-37.0); MEAN PLATELET VOLUME 8.6 fL (7.2-11.7); MONO # 0.3 K/uL (0.0-0.8); MONO % 2.5 % (0.0-10.0); NEUT # 9.8 K/uL (1.8-7.0); NEUT % 94.7 % (50.0-75.0); PLATELET COUNT 146 K/uL (130-400); RBC 4.33 Mil/uL (4.40-5.90); RED CELL DISTRIBUTION WIDTH 14.4 % (11.5-14.5); WHITE BLOOD COUNT 10.3 K/uL (4.8-10.8)
[2017-09-26 07:47] LABS: ALB/GLOB RATIO 1.2 (1.0-2.1); ALBUMIN 3.4 g/dL (3.5-5.0); ALT/SGPT 19 U/L (21-72); AST/SGOT 15 U/L (17-59); BLOOD UREA NITROGEN 34 mg/dL (9-20); CALCIUM 8.4 mg/dl (8.6-10.4); GFR AFRICAN-AMERICAN > 60; GFR NON-AFRICAN AMERICAN 54
[2017-09-26] MEDS: Fluticasone-Salmeterol 250-50mcg Diskus INH SCH (08:05)
[2017-09-26] MEDS: (Novolog) Insulin Aspart, Recombinant 100 u/ml 10 ml vial SC SCH ×3 (08:23→16:52)
[2017-09-26 08:33] LABS: BANDS 1 % (0-2); LYMPHOCYTE 2 % (20-40); MONOCYTE 3 % (0-10); NEUTROPHIL 93 % (50-75); PLATELET ESTIMATE NORMAL (NORMAL); REACTIVE LYMPHOCYTES 1 % (0-0); TOTAL CELLS COUNTED 100
--- NOTE | 2017-09-26 09:14 | CP.PCM.PN ---
Subjective - Date & Time of Evaluation Date of Evaluation: 09/26/17 Time of Evaluation: 09:00 - Subjective Subjective: PGY-[address] Soriano Patient seen and examined at bedside. No acute events reported overnight. Patient reports to have occasional coughs, non productive. He denies having any shortness of breath, or chest pain. He further denies having fever, chills, headache, nausea, or vomiting. Objective - Vital Signs/Intake and Output Vital Signs (last 24 hours): Temp Pulse Resp BP Pulse Ox 98.8 F 60 18 169/83 H 99 09/26/17 08:26 09/26/17 08:26 09/26/17 08:26 09/26/17 08:26 09/26/17 08:26 Intake and Output: 09/26/17 09/26/17 06:59 18:59 Intake Total 500 Balance 500 - Medications Medications: Current Medications Acetazolamide (Diamox 250 Mg Tab) 250 mg PO BID [facility] Last Admin: 09/25/17 18:56 Dose: 250 mg Albuterol/Ipratropium (Duoneb 3 Mg/0.5 Mg (3 Ml) Ud) 3 ml INH RQ6 [facility] Last Admin: 09/26/17 02:58 Dose: Not Given Aspirin (Aspirin) 325 mg PO DAILY [facility] Last Admin: 09/25/17 09:40 Dose: 325 mg Benzonatate (Tessalon Perles) 100 mg PO Q8 [facility] Last Admin: 09/26/17 05:56 Dose: 100 mg Brimonidine Tartrate (Alphagan 0.2% Opht) 0 ml OD TID [facility] Last Admin: 09/25/17 18:00 Dose: 1 drop Bumetanide (Bumex) 0.5 mg PO DAILY [facility] Last Admin: 09/25/17 09:41 Dose: 0.5 mg Citalopram Hydrobromide (Celexa) 20 mg PO DAILY [facility] Last Admin: 09/25/17 09:40 Dose: 20 mg Enoxaparin Sodium (Lovenox) 40 mg SC DAILY [facility] Last Admin: 09/25/17 09:42 Dose: 40 mg Finasteride (Proscar) 5 mg PO DAILY [facility] Last Admin: 09/25/17 09:40 Dose: 5 mg Glipizide (Glucotrol Xl) 2.5 mg PO DAILY [facility] Last Admin: 09/25/17 09:41 Dose: 2.5 mg Insulin Aspart (Novolog) 0 unit SC ACHS [facility] PRN Reason: Protocol Last Admin: 09/26/17 08:23 Dose: 1 unit Lactulose (Enulose) 20 gm PO HS [facility] Last Admin: 09/25/17 21:49 Dose: 20 gm Losartan Potassium (Cozaar) 100 mg PO DAILY [facility] Last Admin: 09/25/17 09:40 Dose: 100 mg Methylprednisolone (Solu-Medrol) 40 mg IVP Q12 [facility] Last Admin: 09/25/17 21:49 Dose: 40 mg Pantoprazole Sodium (Protonix Ec Tab) 40 mg PO DAILY [facility] Last Admin: 09/25/17 09:40 Dose: 40 mg Pilocarpine HCl (Isopto Carpine 1% Opht Soln) 1 drop OU TID [facility] Last Admin: 09/25/17 18:00 Dose: 1 drop Fluticasone/Salmeterol (Advair Diskus 250/50) 1 puff INH RQ12 [facility] Last Admin: 09/25/17 19:29 Dose: 1 puff Tamsulosin HCl (Flomax) 0.4 mg PO DAILY [facility] Last Admin: 09/25/17 09:40 Dose: 0.4 mg - Labs Labs: 09/26/17 07:11 09/26/17 07:11 - Additional Findings Additional findings: - Constitutional Appears: Non-toxic - Head Exam Head Exam: NORMAL INSPECTION - Eye Exam Eye Exam: Normal appearance - ENT Exam ENT Exam: Mucous Membranes Moist - Neck Exam Neck Exam: Full ROM - Respiratory Exam Respiratory Exam: Decreased Breath Sounds, no wheezes, no crackles - Cardiovascular Exam Cardiovascular Exam: REGULAR RHYTHM, Murmur - GI/Abdominal Exam GI & Abdominal Exam: Normal Bowel Sounds - Extremities Exam Extremities Exam: absent: Pedal Edema - Back Exam Back Exam: NORMAL INSPECTION - Neurological Exam Neurological Exam: Alert - Psychiatric Exam Psychiatric exam: Normal Affect - Skin Skin Exam: Normal Color Assessment and Plan - Assessment and Plan (Free Text) Assessment: Chest pain, resolved -Troponin negative x2 -Echo showed moderate to severe , cardio recommends outpatient workup -Cardiology consulted, Dr. Javier help appreciated -Cardiology recommends continue medical management -ASA 325mg COPD -Solumedrol 40mg IV Q12 taper -Benzonatate 100mg Q8 -Advair Diskus INH Q12h -Pulmonary consulted, Dr. Arthur help appreciated -Follow up with Dr. Arthur for outpatient PSG -Medrol dose pack HTN -Losartan 100mg po DM -Glipizide 2.5mg po -ISS low -accucheck BPH -Flomax 0.4mg po -Froscar 5mg po Prophylactic measures -Lovenox -Protonix Patient is medically stable to be discharged per Dr. Soriano Discussed with attending Dr. Soriano All management per Dr. Soriano
[2017-09-26] MEDS: PILOCARPINE 1% OU SCH ×3 (11:10→17:32)
[2017-09-26] MEDS: GlipiZIDE 2.5 mg SR Tab PO SCH (11:11)
[2017-09-26] MEDS: Enoxaparin 40 mg Syringe SC SCH (11:11)
[2017-09-26] MEDS: MethylPREDNISolone 40 mg Vial IVP SCH (11:11)
[2017-09-26] MEDS: Pantoprazole 40 mg EC Tab PO SCH (11:11)
[2017-09-26] MEDS: Brimonidine 0.2% Opth Sol (5ml) OD SCH ×3 (11:12→17:48)
[2017-09-26 13:44] VITALS: RESP 20
--- NOTE | 2017-09-26 14:40 | CP.PCM.PN ---
Subjective - Date & Time of Evaluation Date of Evaluation: 09/26/17 Time of Evaluation: 14:37 - Subjective Subjective: PT ALERT, FEELS BETTER. NO COUGH. ROS; OTHERWISE NEG. Objective - Vital Signs/Intake and Output Vital Signs (last 24 hours): Temp Pulse Resp BP Pulse Ox 98.5 F 60 20 166/77 H 93 L 09/26/17 13:43 09/26/17 13:43 09/26/17 13:43 09/26/17 13:43 09/26/17 13:43 Intake and Output: 09/26/17 09/26/17 06:59 18:59 Intake Total 500 Balance 500 - Medications Medications: Current Medications Acetazolamide (Diamox 250 Mg Tab) 250 mg PO BID [facility] Last Admin: 09/26/17 11:11 Dose: 250 mg Albuterol/Ipratropium (Duoneb 3 Mg/0.5 Mg (3 Ml) Ud) 3 ml INH RQ6 [facility] Last Admin: 09/26/17 13:22 Dose: 3 ml Aspirin (Aspirin) 325 mg PO DAILY [facility] Last Admin: 09/26/17 11:11 Dose: 325 mg Benzonatate (Tessalon Perles) 100 mg PO Q8 [facility] Last Admin: 09/26/17 13:00 Dose: 100 mg Brimonidine Tartrate (Alphagan 0.2% Opht) 0 ml OD TID [facility] Last Admin: 09/26/17 13:00 Dose: 1 drop Bumetanide (Bumex) 0.5 mg PO DAILY [facility] Last Admin: 09/26/17 11:11 Dose: 0.5 mg Citalopram Hydrobromide (Celexa) 20 mg PO DAILY [facility] Last Admin: 09/26/17 11:11 Dose: 20 mg Enoxaparin Sodium (Lovenox) 40 mg SC DAILY [facility] Last Admin: 09/26/17 11:11 Dose: 40 mg Finasteride (Proscar) 5 mg PO DAILY [facility] Last Admin: 09/26/17 11:11 Dose: 5 mg Glipizide (Glucotrol Xl) 2.5 mg PO DAILY [facility] Last Admin: 09/26/17 11:11 Dose: 2.5 mg Insulin Aspart (Novolog) 0 unit SC [facility] PRN Reason: Protocol Last Admin: 09/26/17 12:27 Dose: Not Given Lactulose (Enulose) 20 gm PO HS [facility] Last Admin: 09/25/17 21:49 Dose: 20 gm Losartan Potassium (Cozaar) 100 mg PO DAILY [facility] Last Admin: 09/26/17 11:19 Dose: 100 mg Methylprednisolone (Solu-Medrol) 40 mg IVP Q12 [facility] Last Admin: 09/26/17 11:11 Dose: 40 mg Pantoprazole Sodium (Protonix Ec Tab) 40 mg PO DAILY [facility] Last Admin: 09/26/17 11:11 Dose: 40 mg Pilocarpine HCl (Isopto Carpine 1% Opht Soln) 1 drop OU TID [facility] Last Admin: 09/26/17 13:00 Dose: 1 drop Pneumococcal Polyvalent Vaccine (Pneumovax 23 Vaccine) 0.5 ml IM .ONCE ONE Stop: 09/26/17 16:01 Fluticasone/Salmeterol (Advair Diskus 250/50) 1 puff INH RQ12 [facility] Last Admin: 09/26/17 08:05 Dose: 1 puff Tamsulosin HCl (Flomax) 0.4 mg PO DAILY [facility] Last Admin: 09/26/17 11:11 Dose: 0.4 mg - Labs Labs: 09/26/17 07:11 09/26/17 07:11 - Constitutional Appears: No Acute Distress - Head Exam Head Exam: ATRAUMATIC, NORMOCEPHALIC - Eye Exam Eye Exam: EOMI, Normal appearance - ENT Exam ENT Exam: Mucous Membranes Moist - Neck Exam Neck Exam: absent: Tenderness - Respiratory Exam Respiratory Exam: Decreased Breath Sounds. absent: Accessory Muscle Use - Cardiovascular Exam Cardiovascular Exam: RRR - GI/Abdominal Exam GI & Abdominal Exam: Soft. absent: Tenderness Additional comments: OBESE - Rectal Exam Rectal Exam: Deferred - Extremities Exam Extremities Exam: absent: Calf Tenderness - Back Exam Back Exam: absent: CVA tenderness (L), CVA tenderness (R) - Neurological Exam Neurological Exam: Alert, Awake, CN II-XII Intact - Psychiatric Exam Psychiatric exam: Normal Mood - Skin Skin Exam: absent: Rash Assessment and Plan (1) CHF (congestive heart failure) Status: Acute (2) Afib Status: Acute (3) Diabetes Status: Acute (4) Obesity Status: Acute (5) COPD exacerbation Status: Acute (6) CAD (coronary artery disease) Status: Acute (7) HTN (hypertension) Status: Acute (8) Aortic stenosis Status: Acute - Assessment and Plan (Free Text) Assessment: RESP STATUS IMPROVING., LESS BRONCHOSPASM., CONT NEB BD., STEROID TAPER TOLERATED., MONITOR O2 SAT. ABG NOTED, FOR BIPAP QHS., DIURESIS TOLERATED. CXR REVIEWED. PROG POOR. DISCUSSED WITH STAFF AT LENGTH AND PMD.
--- NOTE | 2017-09-26 14:46 | CP.PCM.PN ---
Subjective - Date & Time of Evaluation Date of Evaluation: 09/26/17 Time of Evaluation: 09:00 - Subjective Subjective: clinically same Objective - Vital Signs/Intake and Output Vital Signs (last 24 hours): Temp Pulse Resp BP Pulse Ox 98.5 F 60 20 166/77 H 93 L 09/26/17 13:43 09/26/17 13:43 09/26/17 13:43 09/26/17 13:43 09/26/17 13:43 Intake and Output: 09/26/17 09/26/17 06:59 18:59 Intake Total 500 Balance 500 - Medications Medications: Current Medications Acetazolamide (Diamox 250 Mg Tab) 250 mg PO BID [facility] Last Admin: 09/26/17 11:11 Dose: 250 mg Albuterol/Ipratropium (Duoneb 3 Mg/0.5 Mg (3 Ml) Ud) 3 ml INH RQ6 [facility] Last Admin: 09/26/17 13:22 Dose: 3 ml Aspirin (Aspirin) 325 mg PO DAILY [facility] Last Admin: 09/26/17 11:11 Dose: 325 mg Benzonatate (Tessalon Perles) 100 mg PO Q8 [facility] Last Admin: 09/26/17 13:00 Dose: 100 mg Brimonidine Tartrate (Alphagan 0.2% Opht) 0 ml OD TID [facility] Last Admin: 09/26/17 13:00 Dose: 1 drop Bumetanide (Bumex) 0.5 mg PO DAILY [facility] Last Admin: 09/26/17 11:11 Dose: 0.5 mg Citalopram Hydrobromide (Celexa) 20 mg PO DAILY [facility] Last Admin: 09/26/17 11:11 Dose: 20 mg Enoxaparin Sodium (Lovenox) 40 mg SC DAILY [facility] Last Admin: 09/26/17 11:11 Dose: 40 mg Finasteride (Proscar) 5 mg PO DAILY [facility] Last Admin: 09/26/17 11:11 Dose: 5 mg Glipizide (Glucotrol Xl) 2.5 mg PO DAILY [facility] Last Admin: 09/26/17 11:11 Dose: 2.5 mg Insulin Aspart (Novolog) 0 unit SC ACHS [facility] PRN Reason: Protocol Last Admin: 09/26/17 12:27 Dose: Not Given Lactulose (Enulose) 20 gm PO HS [facility] Last Admin: 09/25/17 21:49 Dose: 20 gm Losartan Potassium (Cozaar) 100 mg PO DAILY [facility] Last Admin: 09/26/17 11:19 Dose: 100 mg Methylprednisolone (Solu-Medrol) 40 mg IVP Q12 [facility] Last Admin: 09/26/17 11:11 Dose: 40 mg Pantoprazole Sodium (Protonix Ec Tab) 40 mg PO DAILY [facility] Last Admin: 09/26/17 11:11 Dose: 40 mg Pilocarpine HCl (Isopto Carpine 1% Opht Soln) 1 drop OU TID [facility] Last Admin: 09/26/17 13:00 Dose: 1 drop Pneumococcal Polyvalent Vaccine (Pneumovax 23 Vaccine) 0.5 ml IM .ONCE ONE Stop: 09/26/17 16:01 Fluticasone/Salmeterol (Advair Diskus 250/50) 1 puff INH RQ12 [facility] Last Admin: 09/26/17 08:05 Dose: 1 puff Tamsulosin HCl (Flomax) 0.4 mg PO DAILY [facility] Last Admin: 09/26/17 11:11 Dose: 0.4 mg - Labs Labs: 09/26/17 07:11 09/26/17 07:11 - Constitutional Appears: Well - Head Exam Head Exam: ATRAUMATIC, NORMAL INSPECTION, NORMOCEPHALIC - Eye Exam Eye Exam: EOMI, Normal appearance, PERRL Pupil Exam: NORMAL ACCOMODATION, PERRL - ENT Exam ENT Exam: Mucous Membranes Moist, Normal Exam - Neck Exam Neck Exam: Full ROM, Normal Inspection. absent: Lymphadenopathy - Respiratory Exam Respiratory Exam: Decreased Breath Sounds - Cardiovascular Exam Cardiovascular Exam: REGULAR RHYTHM, +S1, +S2 - GI/Abdominal Exam GI & Abdominal Exam: Soft, Diminished Bowel Sounds - Rectal Exam Rectal Exam: Deferred
[2017-09-26 15:58] VITALS: BP 151/76; PULSE 61; TEMP 98.2; O2SAT 96
[2017-09-26] MEDS ORDERED: Pneumococcal 23-Valent Vaccine IM ONE (16:00)
--- NOTE | 2017-09-26 17:28 | CARD ---
APPROVED REPORT EKG Measurement Heart [id number] <Conclusion> AV dual-paced rhythm Abnormal ECG
== END 2017-09-26 20:28 | DRG 127 ==
LOC: C.ER 03:47 → C.9E 06:10 → C.5S 15:18 → OBSVTOIN 09-25 15:52 → C.3T 09-26 13:33
PROVIDERS: ADMIT Internal Medicine Nephrology; ATTEND Internal Medicine Nephrology
DX: I11.0 Hypertensive heart disease with heart failure (principal); J44.0 Chronic obstructive pulmonary disease with (acute) lower respiratory infection; E78.5 Hyperlipidemia, unspecified; E66.9 Obesity, unspecified; G47.30 Sleep apnea, unspecified; H40.9 Unspecified glaucoma; I25.10 Atherosclerotic heart disease of native coronary artery without angina pectoris; I48.91 Unspecified atrial fibrillation; I50.9 Heart failure, unspecified; N40.1 Benign prostatic hyperplasia with lower urinary tract symptoms; Z79.4 Long term (current) use of insulin; Z87.891 Personal history of nicotine dependence; J98.01 Acute bronchospasm; E11.9 Type 2 diabetes mellitus without complications